=== PATIENT | female | born 1955 | race Caucasian/White ===

== ENCOUNTER → 2017-06-05 | Outpatient (CLI) | payer OTHER ==
[~2017-06-05] MED LIST: ALBUAER INH; BUPR-79 PO; CMD4 PO; FLNIN NAE; GLC5 PO; GLCSR500 PO; LEVO100T7 PO; LISI-729 PO; LORA-741 PO; MULT1LIQ; VITRON C PO; WARF2TAB PO
--- NOTE | 2017-06-05 13:40 | DIAGNOSTIC IMAGING REPORT ---
L UPPER EXT JOINT WITHOUT CLINICAL HISTORY: 62 years-old Female presenting with HEMATOMA, INCREASED PAIN/TENDERNESS. TECHNIQUE: Multisequence, multiplanar MR imaging of the left elbow was performed without the use of intravenous contrast. IV contrast: None. COMPARISON: Plain radiographs from 05/28/2017. FINDINGS: Localizer images: Unremarkable. Significant subcutaneous edema along the distal medial arm extending beyond the elbow joint to the dorsal medial forearm. At the level of the proximal ulnar metaphysis is a superficial heterogeneously T2 hypointense, heterogeneously T1 hyperintense lobular collection suggestive of hematoma. This measures 3.3 x 1.1 x 2.5 cm. Fluid noted within the olecranon bursa with overlying significant subcutaneous infiltration. Minimal increased signal intensity within the superficial aspect of the flexor compartment musculature (flexor carpi ulnaris and flexor digitorum profundus). Minimal increased signal intensity also noted in the anconeus muscle at the lateral proximal ulnar metaphysis. No significant elbow joint effusion. No bony edema. Articular cartilage grossly intact. Ulnar collateral ligament and common flexor tendon intact. Thickening of the common extensor tendon. Radial collateral ligament, lateral ulnar collateral ligament and annular ligament intact. Triceps tendon, brachialis tendon, and biceps tendons normal. IMPRESSION: 1. Superficial hematoma along the medial dorsal elbow measuring 3.3 x 1.1 x 2.5 cm. 2. Olecranon bursitis. 3. Extensive superficial subcutaneous edema along the distal medial arm and dorsal medial forearm, possibly contusion. The absence of trauma this raises concern for cellulitis. 4. Minimal intramuscular reactive changes primarily in the superficial portion of the flexor compartment musculature. 5. Findings suggestive of tendinosis of the common extensor tendon. Electronically signed by: Micha Grider M.D. 06/05/2017 1:39 PM Dictated Date/Time: 06/05/2017 1:30 PM
== END | disposition home or self-care (01) ==
LOC: C.MRI 11:40 → EDSTATUS 12:30
PROVIDERS: ATTEND Nurse Practitioner Family
DX: S50.02XA Contusion of left elbow, initial encounter (principal); X58.XXXA Exposure to other specified factors, initial encounter; M70.22 Olecranon bursitis, left elbow

== ENCOUNTER 2020-12-01 17:19 | Inpatient (IN) ==
[2020-12-01] MEDS ORDERED: ACETAMINOPHEN 500 MG TAB PO STA (18:08)
--- NOTE | 2020-12-01 18:35 | Emergency Department Note ---
History of Present Illness General Chief complaint: Fall Time Seen by Provider: 12/01/20 17:59 History of Present Illness Maximum Pain Intensity: 8 This is a 65-year-old female that presents to the emergency department via ambulance with complaints of "fall". The patient notes that she lives alone. She has had trouble with frequent falls over the past few weeks. She notes that she feels weak at times and is not able to stand. Last night around 10 PM she was sitting on the toilet and went to stand up but was too weak to do so and fell. She notes pain now in the right hip. She laid on the floor most of the night. The patient denies any speech trouble, syncope, loss of consciousness, striking the head, chest pain, shortness of breath, fevers or chills. The patient points to the right lateral hip as a location of pain that extends into the right anterior proximal thigh region extending to the knee. Home Medications Medication Instructions Recorded Confirmed Type Vitron-C 1 tab PO 3XWK 04/18/18 12/01/20 History bupropion HCl 200 mg PO BID 04/18/18 12/01/20 History levothyroxine 100 mcg PO QAM 04/18/18 12/01/20 History lisinopril 5 mg PO QPM 04/18/18 12/01/20 History metformin 500 mg PO BID 04/18/18 12/01/20 History calcium carbonate [Calcium 600] 600 mg PO DAILY 12/01/20 12/01/20 History cholecalciferol (vitamin D3) 75 mcg PO DAILY 12/01/20 12/01/20 History [Vitamin D3] dulaglutide [Trulicity] 0.75 mg SUBCUT WK 12/01/20 12/01/20 History warfarin 4 mg PO QPM 12/01/20 12/01/20 History zoledronic owjy-[id number]-demfs 0 ea IV YEARLY 12/01/20 12/01/20 History [Reclast] albuterol 2 mcg INHALATION QID PRN 12/02/20 12/02/20 History lorazepam 0.5 mg PO TID PRN 12/02/20 12/02/20 History trazodone 50 mg PO HS 12/02/20 12/02/20 History Allergies Allergy/AdvReac Type Severity Reaction Status Date / Time prochlorperazine Allergy Severe THROAT Verified 12/01/20 17:54 SWELLS Sulfa (Sulfonamide Allergy Intermediate ITCHY RASH Verified 12/01/20 17:54 Antibiotics) morphine AdvReac Intermediate HALLUCINATION, Verified 12/01/20 17:54 FEEL "REALLY WEIRD". Past Med/Surg History Medical History Anemia iron deficiency anemia - on oral iron Anxiety Blood clotting disorder Depression Diabetes mellitus, type [address] Hypothyroidism Pulmonary embolism 1998 - on warfarin - has a blood clotting disorder (unsure of name) Surgical History History of appendectomy History of carpal tunnel release rt History of cholecystectomy History of gastric bypass 10 years ago History of tooth extraction Social History Smoking Status: Never smoker Second Hand Exposure: No; Hx Alcohol Use: No Hx Substance Use: No Communication Ability: Effective Perforator Required: No Beliefs That Will Affect Care: None Current Living Situation: Alone Feels Safe at Home: Yes Assistive Devices: Glasses Review of Systems A total of 10 systems reviewed and were otherwise negative Physical Exam Vital Signs Vital Signs - 24 hr 12/01/20 17:40 12/01/20 21:38 12/01/20 21:42 Temperature 36.6 C Temperature Source Oral Pulse Rate 84 Pulse Rate [Right Finger] 82 80 Pulse Rate from SpO2 Sensor Pulse Rhythm [Right Finger] Regular Regular Pulse Strength [Right Finger] Normal Normal Respiratory Rate 16 18 18 Respiratory Effort / Characteristics Non-Labored Non-Labored Respiratory Depth Normal Normal Respiratory Pattern Regular Regular Blood Pressure 206/141 H Blood Pressure [Left Arm] 157/116 H 151/78 H Blood Pressure Mean 162 Blood Pressure Mean [Left Arm] 129 102 Blood Pressure Position [Left Arm] Lying Lying Pulse Oximetry 94 98 96 Oxygen Delivery Method Room Air Room Air Room Air Sepsis Recent Fever Within 48 Hours No Sepsis New/Unexplained Change in Mental Status N/A Sepsis Action Taken by Nursing No Action Required 12/01/20 22:00 12/01/20 23:01 12/01/20 23:14 Temperature Temperature Source Pulse Rate Pulse Rate [Right Finger] 74 Pulse Rate from SpO2 Sensor 77 74 Pulse Rhythm [Right Finger] Regular Pulse Strength [Right Finger] Normal Respiratory Rate 18 Respiratory Effort / Characteristics Non-Labored Respiratory Depth Normal Respiratory Pattern Regular Blood Pressure 149/88 H Blood Pressure [Left Arm] 150/94 H Blood Pressure Mean 108 Blood Pressure Mean [Left Arm] 112 Blood Pressure Position [Left Arm] Lying Pulse Oximetry 96 98 98 Oxygen Delivery Method Room Air Sepsis Recent Fever Within 48 Hours Sepsis New/Unexplained Change in Mental Status Sepsis Action Taken by Nursing 12/01/20 23:30 12/01/20 23:31 12/02/20 00:00 Temperature Temperature Source Pulse Rate Pulse Rate [Right Finger] Pulse Rate from SpO2 Sensor 79 76 77 Pulse Rhythm [Right Finger] Pulse Strength [Right Finger] Respiratory Rate Respiratory Effort / Characteristics Respiratory Depth Respiratory Pattern Blood Pressure 155/77 H Blood Pressure [Left Arm] Blood Pressure Mean 103 Blood Pressure Mean [Left Arm] Blood Pressure Position [Left Arm] Pulse Oximetry 94 96 95 Oxygen Delivery Method Sepsis Recent Fever Within 48 Hours Sepsis New/Unexplained Change in Mental Status Sepsis Action Taken by Nursing 12/02/20 00:01 12/02/20 00:02 Temperature Temperature Source Pulse Rate Pulse Rate [Right Finger] Pulse Rate from SpO2 Sensor 77 78 Pulse Rhythm [Right Finger] Pulse Strength [Right Finger] Respiratory Rate Respiratory Effort / Characteristics Respiratory Depth Respiratory Pattern Blood Pressure 194/86 H Blood Pressure [Left Arm] Blood Pressure Mean 122 Blood Pressure Mean [Left Arm] Blood Pressure Position [Left Arm] Pulse Oximetry 95 94 Oxygen Delivery Method Sepsis Recent Fever Within 48 Hours Sepsis New/Unexplained Change in Mental Status Sepsis Action Taken by Nursing VITAL SIGNS - Vital signs and nursing notes were reviewed. Stable and afebrile. GENERAL -65-year-old female appearing her stated age who is in no acute distress. Communicates well with provider and answers questions appropriately. SKIN - Without rashes. No meningeal or petechial rash. No deformity to the right hip. The hip right lower extremity is not shortened or rotated. HEAD - NC/AT. No daniel signs or raccoon's eyes. EYES - PERRL with EOMI bilaterally. Sclera anicteric. Palpebral conjunctiva pink and moist with no injection noted. EARS - No deformities of external structures noted on gross examination bi laterally. No blood from the ear canals. NECK - No nuchal rigidity. LUNGS - Chest wall symmetric without accessory muscle use, intercostals retractions, or central cyanosis. Normal vesicular breath sounds CTA B/L. No wheezes, rales, or rhonchi appreciated. CARDIAC - RRR with S1/S2. No murmur, rubs, or gallops appreciated. ABDOMEN - Abdominal contour normal without pulsations or visible masses. BS normoactive all four quadrants. No tenderness, palpable masses, hepatosplenomegaly, or ascites noted. No evidence of a surgical abdomen. The abdomen is soft and nonrigid. EXTREMITIES - No clubbing or peripheral cyanosis. Right lateral hip tenderness noted. Patient able to appreciate sensation to touch overlying the right lower extremity without deficit. Right dorsalis pedis pulse intact. +5/5 strength noted in UE/LE bilaterally. NEUROLOGIC - Cranial nerves II through XII grossly intact. PSYCH - A&Ox3 and cooperates fully with examiner. Pt is very pleasant and interacts well with examiner. Course Administered Medications Sodium Chloride (Nss) 500 mls @ 125 mls/hr IV .Q4H TWAN Stop: 12/31/20 21:14 Last Admin: 12/01/20 21:38 Dose: 125 mls/hr Documented by: [id number] Discontinued Medications Acetaminophen (Acetaminophen 500 Mg Tab) 500 mg PO NOW STA Stop: 12/01/20 18:09 Last Admin: 12/01/20 18:54 Dose: 500 mg Documented by: [id number] Fentanyl Citrate (Fentanyl Citrate 100 Mcg/2 Ml Vial) 50 mcg IV NOW STA Stop: 12/01/20 21:26 Last Admin: 12/01/20 21:39 Dose: 50 mcg Documented by: [id number] Ioversol (Optiray 300 100ml) 83 ml IV ONCE ONE Stop: 12/01/20 22:17 Last Admin: 12/01/20 22:17 Dose: 83 ml Documented by: [id number] Ondansetron HCl (Ondansetron Inj 2 Mg/Ml 2 Ml Vial) 4 mg IV NOW STA Stop: 12/01/20 21:26 Last Admin: 12/01/20 21:39 Dose: 4 mg Documented by: [id number] Medical Decision Making Laboratory Data Result diagrams: 12/01/20 18:08 12/01/20 19:00 Lab Results 12/01/20 12/01/20 12/01/20 Range/Units 18:08 19:00 19:50 WBC 9.86 (4.8-10.8) K/uL RBC 4.03 L (4.2-5.4) M/uL Hgb 12.4 (12.0-16.0) g/dL Hct 36.4 L (37-47) % MCV 90.3 (80-100) fL MCH 30.8 (25-34) pg MCHC 34.1 (32-36) g/dL RDW Std Deviation 42.7 (36.4-46.3) fL RDW Coeff of Betty 13.2 (11.5-14.5) % Plt Count 282 (130-400) K/uL MPV 9.3 (7.4-10.4) fL Immature Gran % (Auto) 0.4 % Neut % (Auto) 70.1 % Lymph % (Auto) 22.6 % Camp % (Auto) 6.2 % Eos % (Auto) 0.6 % Baso % (Auto) 0.1 % Neut # (Auto) 6.91 H (1.4-6.5) K/uL Lymph # (Auto) 2.23 (1.2-3.4) K/uL Camp # (Auto) 0.61 H (0.11-0.59) K/uL Eos # (Auto) 0.06 (0-0.5) K/uL Baso # (Auto) 0.01 (0-0.2) K/uL Immature Gran # (Auto) 0.04 H (0.00-0.02) K/uL PT 19.3 H (9.0-12.0) Seconds INR 2.0 H (0.9-1.1) APTT 38.8 H (21.0-31.0) Seconds PTT Ratio 1.5 Sodium 139 (136-145) mmol/L Potassium 3.3 L (3.5-5.1) mmol/L Chloride 105 (98-107) mmol/L Carbon Dioxide 26 (21-32) mmol/L Anion Gap 8.0 (3-11) BUN 15 (7-18) mg/dl Creatinine 0.97 (0.6-1.2) mg/dl Est Cr Clr Drug Dosing 61.0 ml/min Est GFR ( Amer) 72.0 ml/min Est GFR (Non-Af Amer) 62.2 ml/min BUN/Creatinine Ratio 15.8 (10-20) Glucose 141 H (70-99) mg/dl Calcium 9.7 (8.5-10.1) mg/dl Magnesium 1.7 L (1.8-2.4) mg/dl Total Bilirubin 0.6 (0.2-1) mg/dl AST 27 (15-37) U/L ALT 16 (12-78) U/L Alkaline Phosphatase 113 (45-117) U/L Total Creatine Kinase 533 H (26-192) U/L Troponin I < 0.015 (0-0.045) ng/ml Total Protein 7.9 (6.4-8.2) gm/dl Albumin 3.1 L (3.4-5.0) gm/dl Globulin 4.8 H (2.5-4.0) gm/dl Albumin/Globulin Ratio 0.6 L (0.9-2) COVID-19 Eval Order SARS-CoV-2 (PCR) (Negative) 12/01/20 12/01/20 Range/Units 21:50 21:50 WBC (4.8-10.8) K/uL RBC (4.2-5.4) M/uL Hgb (12.0-16.0) g/dL Hct (37-47) % MCV (80-100) fL MCH (25-34) pg MCHC (32-36) g/dL RDW Std Deviation (36.4-46.3) fL RDW Coeff of Betty (11.5-14.5) % Plt Count (130-400) K/uL MPV (7.4-10.4) fL Immature Gran % (Auto) % Neut % (Auto) % Lymph % (Auto) % Camp % (Auto) % Eos % (Auto) % Baso % (Auto) % Neut # (Auto) (1.4-6.5) K/uL Lymph # (Auto) (1.2-3.4) K/uL Camp # (Auto) (0.11-0.59) K/uL Eos # (Auto) (0-0.5) K/uL Baso # (Auto) (0-0.2) K/uL Immature Gran # (Auto) (0.00-0.02) K/uL PT (9.0-12.0) Seconds INR (0.9-1.1) APTT (21.0-31.0) Seconds PTT Ratio Sodium (136-145) mmol/L Potassium (3.5-5.1) mmol/L Chloride (98-107) mmol/L Carbon Dioxide (21-32) mmol/L Anion Gap (3-11) BUN (7-18) mg/dl Creatinine (0.6-1.2) mg/dl Est Cr Clr Drug Dosing ml/min Est GFR ( Amer) ml/min Est GFR (Non-Af Amer) ml/min BUN/Creatinine Ratio (10-20) Glucose (70-99) mg/dl Calcium (8.5-10.1) mg/dl Magnesium (1.8-2.4) mg/dl Total Bilirubin (0.2-1) mg/dl AST (15-37) U/L ALT (12-78) U/L Alkaline Phosphatase (45-117) U/L Total Creatine Kinase (26-192) U/L Troponin I (0-0.045) ng/ml Total Protein (6.4-8.2) gm/dl Albumin (3.4-5.0) gm/dl Globulin (2.5-4.0) gm/dl Albumin/Globulin Ratio (0.9-2) COVID-19 Eval Order Covid19 at [facility] SARS-CoV-2 (PCR) NEGATIVE (Negative) Imaging Data Radiologist's Impression: Femur X-Ray 12/01/20 18:08 XR femur RT 2V routine CLINICAL HISTORY: Right femur pain status post trauma COMPARISON: None. DISCUSSION: No acute fractures or dislocations are visualized. There are vascular calcifications present. IMPRESSION: No acute fractures or dislocations identified. ACT 112: Negative or not required by law. Electronically signed by: Pepe Bonilla M.D. 12/01/2020 7:02 PM Pelvis X-Ray 12/01/20 18:08 XR pelvis 1-2V routine CLINICAL HISTORY: Right pelvis and hip pain status post trauma COMPARISON: None. DISCUSSION: The bones are osteopenic. No fractures or dislocations are visualized. There is no SI joint diastases. There is no symphysis diastases. Vascular calcifications are visualized. There is an IVC filter present. IMPRESSION: No acute fractures or dislocations identified. ACT 112: Negative or not required by law. Electronically signed by: Pepe Bonilla M.D. 12/01/2020 7:[address] 12/01/20 19:12 CT pelvis wo con CT DOSE: 850.11 mGy.cm CLINICAL HISTORY: Right pelvis and hip pain status post trauma TECHNIQUE: Helical images were acquired in the transverse plane. Sagittal and coronal reformatted images were acquired. A dose lowering technique was utilized adhering to the principles of ALARA. COMPARISON STUDY: Conventional x-ray study performed the same day. FINDINGS: The bones are osteopenic. No acute fractures or dislocations are visualized. There are multiple fluid-filled bowel loops. There is partial visualization of a short segment small bowel intussusception. In the absence of abdominal pain, this may be transient and incidental. There are postsurgical changes present within the small bowel. There are mild degenerative changes present within the hips. IMPRESSION: 1. No acute fractures or dislocations identified 2. Multiple fluid-filled small bowel loops. Partial visualization of a suspected short segment small bowel intussusception ACT 112: Negative or not required by law. Electronically signed by: Pepe Bonilla M.D. 12/01/2020 8:[address] ABDOMEN & PELVIS With Contrast: No bowel obstruction. Postsurgical changes from a Екатерина-en-Y gastric bypass. The re is a small intussusception at the jejunojejunal anastomosis. Note that small bowel intussusceptions are usually transient in nature. No inflammatory changes, free fluid, or free air. Hiatal hernia. Cholecystectomy. Incompletely characterized low-attenuation lesion within the spleen potentially assist versus hemangioma. IVC filter in place. Radiologist: Ruddy Polo MD Study ready at 22:36 and initial results transmitted at 22:43 MDM Narrative Patient was seen and evaluated as above in room C 12. Review was performed of nursing notes and vital signs. I did review pertinent previous visits and patient history. After obtaining a thorough history and physical examination the above work up was performed. Patient presents to us today with frequent falls now with right hip pain. She lives alone. It was to a point where last night she was too weak to stand up off of the toilet and fell. She laid on the floor most of the night. On arrival here she is tender overlying the right lateral hip. Vital signs stable. Options of care were discussed with the patient. IV access established. Labs were drawn. Initially x-rays were obtained of the right femur and pelvis. These were negative for any fracture reassuringly. I was concerned about potential occult fracture in the pelvis given her location of pain therefore CT scan of the pelvis without contrast was ordered. This complicated the work-up as there was mention of multiple fluid-filled small bowel loops, partial visualization of a suspected short segment small bowel intussusception. Clinically the patient has a benign abdomen but does have a history of gastric bypass about 10 years ago that was performed in [facility]. The patient denies any complications with this. Decision was then made to discuss findings with GI and I spoke to Dr. Mcneal. This is felt to be more of a surgical case discussion and therefore we will proceed with CT scan of the abdomen pelvis and discuss findings with general surgery. CT scan was then obtained. This was read by stat rad and revealed no bowel obstruction. Small intussusception at the anastomosis. I discussed this with the on-call surgeon, Dr. Fisher. With the patient having a benign abdominal exam, no abdominal pain this is felt to be of no significance. Patient will be admitted for evaluation of frequent falls and will note that the intussusception is felt to be more of an incidental. Patient was reevaluated several times and did not have any abdominal pain. Patient does not have any evidence of a surgical abdomen. Patient was given p.o. acetaminophen initially for pain and then given IV fentanyl noting persistence of pain and wanting to provide IV analgesics but also working with her allergies. She was also given IV fluids as I will note she has a mild elevation of CK as this level was drawn noting that she did lay on the floor much of the night last night. There is no leukocytosis or anemia. INR 2.0. Mild hypokalemia 3.3. Total CK 533. Covid testing negative. I do believe that the patient would benefit from further evaluation and management inpatient setting and therefore the hospitalist was consulted. Please refer to further documentation regarding her stay. Case was discussed with the attending physician. GCS: 15 In the evaluation and treatment of this patient the following differential diagnoses were entertained: PA, PE, CVA, TIA, electrolyte disturbance, depression, muscle weakness, Lyme, among others. Attending Attestation: I Kyle Whiting MD independently saw and evaluated this patient and agree with history and physical is otherwise documented by the physician graphic design assistant. See their note for full details. Patient resting in bed no respiratory distress with some right-sided abdominal tenderness on exam. Difficulty ambulating due to pain and likely no evidence of fractures on imaging although question of some small intussusception. This was discussed with the surgery team who thought it was incidental and benign in nature. Given her difficulty ambulating and frequent falls and discussed with the patient she was agreed the plan for further observation here in the hospital and the hospitalist was contacted. Impression & Plan Frequent falls, Lives alone, Acute pain of right hip Discharge Plan Visit Data Chief Complaint: Fall ED Provider: Kyle Whiting ED Midlevel Provider: Singh Villa Discharge Problem: Frequent falls, Lives alone, Acute pain of right hip Patient Disposition: Admitted As Inpatient Condition: Good Discharge Instructions Interventions: ED Discharge Assessment Last Done: 12/02/20 01:41
--- NOTE | 2020-12-01 19:03 | XRay Report ---
XR femur RT 2V routine CLINICAL HISTORY: Right femur pain status post trauma COMPARISON: None. DISCUSSION: No acute fractures or dislocations are visualized. There are vascular calcifications pres ent. IMPRESSION: No acute fractures or dislocations identified. ACT 112: Negative or not required by law. Electronically signed by: Pepe Bonilla M.D. 12/01/2020 7:02 PM
--- NOTE | 2020-12-01 19:03 | XRay Report ---
XR pelvis 1-2V routine CLINICAL HISTORY: Right pelvis and hip pain status post trauma COMPARISON: None. DISCUSSION: The bones are osteopenic. No fractures or dislocations are visualized. There is no SI geovani nt diastases. There is no symphysis diastases. Vascular calcifications are visualized. There is an IV C filter present. IMPRESSION: No acute fractures or dislocations identified. ACT 112: Negative or not required by law. Electronically signed by: Pepe Bonilla M.D. 12/01/2020 7:01 PM
[2020-12-01 19:09] LABS: Basophils # (auto) 0.01 K/uL (0-0.2); Basophils % (auto) 0.1 %; Eosinophils # (auto) 0.06 K/uL (0-0.5); Eosinophils % (auto) 0.6 %; Hematocrit (blood only) 36.4 % (37-47); Hemoglobin 12.4 g/dL (12.0-16.0); Immature Granulocytes # (auto) 0.04 K/uL (0.00-0.02); Immature Granulocytes % (auto) 0.4 %; Lymphocytes # (auto) 2.23 K/uL (1.2-3.4); Lymphocytes % (auto) 22.6 %; Mean Corpuscular Hemoglobin 30.8 pg (25-34); Mean Corpuscular Hgb Conc 34.1 g/dL (32-36); Mean Corpuscular Volume 90.3 fL (80-100); Mean Platelet Volume 9.3 fL (7.4-10.4); Monocytes # (auto) 0.61 K/uL (0.11-0.59); Monocytes % (auto) 6.2 %; Neutrophils # (auto) 6.91 K/uL (1.4-6.5); Neutrophils % (auto) 70.1 %; Platelet Count 282 K/uL (130-400); RDW Coefficient of Variation 13.2 % (11.5-14.5); RDW Standard Deviation 42.7 fL (36.4-46.3); Red Blood Count 4.03 M/uL (4.2-5.4); White Blood Count 9.86 K/uL (4.8-10.8)
[2020-12-01 19:26] LABS: Alanine Aminotransferase 16 U/L (12-78); Albumin Level 3.1 gm/dl (3.4-5.0); Aspartate Aminotransferase 27 U/L (15-37); BUN Creatinine Ratio 15.8 (10-20); Blood Urea Nitrogen 15 mg/dl (7-18); Calcium 9.7 mg/dl (8.5-10.1); Carbon Dioxide 26 mmol/L (21-32); Chloride 105 mmol/L (98-107); Est GFR (Non-African American) 62.2 ml/min; Glucose 141 mg/dl (70-99); Magnesium 1.7 mg/dl (1.8-2.4); Potassium 3.3 mmol/L (3.5-5.1); Sodium 139 mmol/L (136-145)
[2020-12-01 19:31] LABS: Albumin Globulin Ratio 0.6 (0.9-2); Alkaline Phosphatase 113 U/L (45-117); Bilirubin,Total 0.6 mg/dl (0.2-1); Creatine Kinase 533 U/L (26-192); Globulin 4.8 gm/dl (2.5-4.0); Total Protein 7.9 gm/dl (6.4-8.2); Troponin I < 0.015 ng/ml (0-0.045)
[2020-12-01 20:26] LABS: Partial Thromboplastin Ratio 1.5; Partial Thromboplastin Time 38.8 Seconds (21.0-31.0); Prothrombin Time 19.3 Seconds (9.0-12.0)
--- NOTE | 2020-12-01 20:39 | CT Scan Report ---
CT pelvis wo con CT DOSE: 850.11 mGy.cm CLINICAL HISTORY: Right pelvis and hip pain status post trauma TECHNIQUE: Helical images were acquired in the transverse plane. Sagittal and coronal reformatted kirti ges were acquired. A dose lowering technique was utilized adhering to the principles of ALARA. COMPARISON STUDY: Conventional x-ray study performed the same day. FINDINGS: The bones are osteopenic. No acute fractures or dislocations are visualized. There are multiple fluid-filled bowel loops. There is partial visualization of a short segment small bowel intussusception. In the absence of abdominal pain, this may be transient and incidental. There are postsurgical changes present within the small bowel. There are mild degenerative changes present within the hips. IMPRESSION: 1. No acute fractures or dislocations identified 2. Multiple fluid-filled small bowel loops. Partial visualization of a suspected short segment small bowel intussusception ACT 112: Negative or not required by law. Electronically signed by: Pepe Bonilla M.D. 12/01/2020 8:38 PM
[2020-12-01] MEDS ORDERED: ONDANSETRON INJ 2 MG/ML 2 ML VIAL IV STA (21:25)
[2020-12-01] MEDS ORDERED: fentaNYL citrate 100 MCG/2 ML VIAL IV STA (21:25)
[2020-12-01] MEDS: SODIUM CHLORIDE 0.9% 500 ML IV SCH (21:38)
[2020-12-01] MEDS ORDERED: OPTIRAY 300 100mL IV ONE (22:16)
[2020-12-02] MEDS ORDERED: LORazepam 0.5 MG TAB PO PRN (01:53)
[2020-12-02] MEDS ORDERED: ALBUTEROL HFA 8 GM INHALER INH PRN (01:57)
[2020-12-02] MEDS: SODIUM CHLORIDE 0.9% 500 ML IV SCH (02:01)
[2020-12-02] MEDS ORDERED: MoRPHine SULFATE 4 MG/ML 1 ML CARP\\VIAL IV PRN (02:05)
--- NOTE | 2020-12-02 02:52 | History and Physical Report ---
DATE OF ADMISSION: 12/02/2020 CHIEF COMPLAINT: Frequent falls. HISTORY OF PRESENT ILLNESS: This is a 65-year-old female with past medical history significant for type 2 diabetes, hypothyroidism, hypertension, irritable bowel syndrome, Hitchcock's esophagus, intestinal postoperative non-absorption, senile osteoporosis with iron deficiency anemia, B12 deficiency, status post gastric bypass surgery, history of pulmonary embolism, on Coumadin, who presents with frequent falls. The patient states in August, she fell on the ice, she thought she slipped and fell in the ice, but since then she fell 4 times, a couple of days ago she had a big fall. Today, she was sitting on the toilet and she could not get up and she fell and laid on the floor for a couple of hours until her fiance came and helped her. That is the reason she came to the ER today. In the ER, imaging studies showed possible intussusception at the previous gastric bypass surgery and ER notified surgery, but because the patient is currently asymptomatic, no further recommendations were made at this time. The patient denies any headache, no blurred vision, no earache, no runny nose, no sore throat, no cough, no fever, no chills, no chest pain, no shortness of breath, no nausea, no vomiting, no abdominal pain. Normal bowel and bladder movements. Currently resting comfortably and hemodynamically stable. She says her legs are just feeling weak and she is falling down. Denies any other complaints. ALLERGIES: PROCHLORPERAZINE, SULFA ANTIBIOTICS, MORPHINE. PAST MEDICAL HISTORY: As mentioned above. PAST SURGICAL HISTORY: Carpal tunnel surgery, colonoscopy, colposcopy, EGD with biopsy, gastric bypass surgery, status post [place] filter, history of giant incarcerated incisional hernia, laryngoscopy, removal of the ruptured appendix, cholecystectomy. MEDICATIONS: The patient is on Ativan 0.5 mg p.o. t.i.d. p.r.n., Trulicity 0.75 mg sublingual once a week, lisinopril 5 mg p.o. daily, metformin 500 mg p.o. b.i.d., montelukast 10 mg p.o. daily, levothyroxine 100 mcg p.o. daily, warfarin 4 mg as directed, trazodone 50 mg p.o. daily, bupropion 100 mg p.o. b.i.d., albuterol 2 puffs q. 4 hours p.r.n., Flonase 2 sprays into each nostril daily, Vitron-C 1 tablet p.o. b.i.d., calcium plus vitamin D 1 tablet p.o. daily, vitamin B12 shots q.12 weeks. FAMILY HISTORY: Significant for mother has heart problems, hypertension, diabetes, and arthritis; father has heart problems; uncle has diabetes; aunt has diabetes. SOCIAL HISTORY: Lives with her fiance. No smoking, no alcohol, no drug use. REVIEW OF SYSTEMS: As per HPI. Rest of review of systems negative. PHYSICAL EXAMINATION: GENERAL: The patient is obese, not in acute distress. VITAL SIGNS: Temperature 36.6, pulse 74, respiratory rate 18, blood pressure 194/86, oxygen 95% on room air. HEENT: Pupils equal, round, and reactive to light. Oral mucosa dry. NECK: No JVD. No neck masses. CARDIOVASCULAR: S1, S2 heard, regular rate and rhythm, no murmur, no gallop. RESPIRATORY SYSTEM: Normal AP diameter. No accessory muscle use. No wheezing, no crackles. ABDOMEN: Soft, bowel sounds present, nontender. No distention. CENTRAL NERVOUS SYSTEM: Cranial nerves II-XII are grossly intact. Not able to lift lower extremity because of pain and whenever she lifts she has pain in the hip region. Sensation is intact. EXTREMITIES: No edema, no erythema seen. LABORATORY DATA: WBC 9.8, hemoglobin 12.4, hematocrit 36.4, platelets 282. PT 19.3, INR 2, APTT 38.8. Sodium 139, potassium 3.3, chloride 105, bicarbonate 26, BUN 15, creatinine 0.9, serum glucose 141, calcium 9.7, magnesium 1.7, total bilirubin 0.6, AST 27, ALT 16, alkaline phosphatase 113, total creatinine kinase 533. Troponin I less than 0.015. SARS-CoV-2 PCR negative. IMAGING DATA: Femur x-ray, no acute fractures or dislocations identified. Pelvic x-ray, no acute fracture or dislocations identified. Pelvic CT, no acute fracture or dislocations identified. Multiple fluid-filled small bowel loops, partial visualization of the suspected short segment, small bowel intussusception. CT of the abdomen and pelvis with contrast, no bowel obstruction. Postsurgical changes from the Екатерина-en-Y gastric bypass. There is a small intussusception of the jejunojejunal anastomosis. No other small bowel intussusceptions. Intussusceptions are usually transit in nature. No inflammatory change, free fluid or free air. Hiatal hernia, cholecystectomy, incompletely characterized low attenuation lesion within the spleen, potentially a cyst versus hemangioma. IVC filter in place. ASSESSMENT AND PLAN: This is a 65-year-old female who presents with frequent falls. 1. Frequent falls: weakness in lower extremity. The patient hx of gastric bypass surgery. She says she takes vitamin B12 shots as scheduled. Her sensation is intact in the lower extremities, but cannot lift the lower extremity because of the pain in the hips region. No fracture on the imaging studies. We will observe in the hospital. We will do PT and OT. Will do vitamin B12 and folate levels and consult neurology for any further recommendations. 2. Question of intussusception on imaging studies. Surgery was notified by the ER, but we will keep her n.p.o. until seen by surgery in a.m. 3. History of pulmonary embolism, on Coumadin. INR 2, continue Coumadin. Follow PT/INR. 4. Hypokalemia: We will replace. 5. Hypomagnesemia: We will replace. 6. Diabetes: Hold her home medication. Placed on sliding scale. Follow the blood sugars. 7. History of iron deficiency anemia, on iron supplements. 8. History of anxiety and depression: Continue home bupropion and Ativan p.r.n. 9. Hypothyroidism: continue Synthroid. 10. Hypertension: Continue lisinopril. We will monitor. 11. Deep venous thrombosis prophylaxis, sequential compression devices. 12. Disposition: Observation in medical floor. PT and OT prior to discharge. Social service to help with discharge planning. [place]
[2020-12-02] MEDS: LEVOTHYROXINE SODIUM 100 MCG TABLET PO SCH (05:57)
[2020-12-02 06:29] LABS: Basophils # (auto) 0.02 K/uL (0-0.2); Basophils % (auto) 0.2 %; Eosinophils # (auto) 0.18 K/uL (0-0.5); Hematocrit (blood only) 33.8 % (37-47); Hemoglobin 11.3 g/dL (12.0-16.0); Immature Granulocytes # (auto) 0.04 K/uL (0.00-0.02); Immature Granulocytes % (auto) 0.5 %; Lymphocytes # (auto) 3.15 K/uL (1.2-3.4); Lymphocytes % (auto) 35.5 %; Mean Corpuscular Hgb Conc 33.4 g/dL (32-36); Mean Corpuscular Volume 92.9 fL (80-100); Mean Platelet Volume 9.1 fL (7.4-10.4); Monocytes # (auto) 0.47 K/uL (0.11-0.59); Monocytes % (auto) 5.3 %; Neutrophils # (auto) 5.01 K/uL (1.4-6.5); Neutrophils % (auto) 56.5 %; Platelet Count 281 K/uL (130-400); RDW Coefficient of Variation 13.4 % (11.5-14.5); RDW Standard Deviation 44.6 fL (36.4-46.3); Red Blood Count 3.64 M/uL (4.2-5.4); White Blood Count 8.87 K/uL (4.8-10.8)
[2020-12-02 07:03] LABS: BUN Creatinine Ratio 16.8 (10-20); Calcium 9.2 mg/dl (8.5-10.1); Est GFR (African American) 72.9 ml/min; Est GFR (Non-African American) 62.9 ml/min; Magnesium 1.7 mg/dl (1.8-2.4); Potassium 3.9 mmol/L (3.5-5.1)
--- NOTE | 2020-12-02 07:45 | CT Scan Report ---
CT SCAN OF THE ABDOMEN AND PELVIS WITH IV CONTRAST CLINICAL HISTORY: Fall. Pelvic pain. Abnormal pelvic CT. History of gastric bypass. COMPARISON STUDY: Pelvic CT dated 12/01/2020. Abdominal CT dated 05/15/2011. TECHNIQUE: Following the IV administration of 83 cc of Optiray 300, CT scan of the abdomen and pelvi s is performed from the lung bases to the proximal femora. Images are reviewed in the axial, sagittal , and coronal planes. IV contrast was administered without complication. A dose lowering technique wa s utilized adhering to the principles of ALARA. CT DOSE: 1047.61 mGy.cm FINDINGS: Lung bases: The heart is normal in size and without pericardial effusion. There are coronary artery c alcifications. The lung bases are clear noting bibasilar atelectasis. Liver: The contrast-enhanced liver is normal in size, contour, and attenuation. There is no intrahepa tic biliary ductal dilatation. The hepatic veins and portal veins are patent. Gallbladder: Surgically absent noting clips in the gallbladder fossa. Spleen: Normal in size and attenuation. A 2.1 cm splenic hypodensity on image #81 has been present da ting back to 2010 and is of doubtful significance. Pancreas: Atrophic and grossly unremarkable. Adrenal glands: Unremarkable. Kidneys: The contrast enhanced kidneys demonstrate mild cortical atrophy and are without hydronephros is. The kidneys enhance symmetrically. There are renovascular calcifications. Abdominal vasculature: The abdominal aorta is normal in course and caliber noting mild atheroscleroti c calcification. An infrarenal IVC filter is in place. Stomach and bowel: There is a moderate hiatal hernia. Postop changes consistent with a history of Rou x-en-Y gastric bypass surgery. No bowel obstruction is identified. Findings of an apparent small wilberto l intussusception in the left lower quadrant are seen on image #260. There is located at the site of anastomosis and there is chronic dilatation of the small bowel this level. This may be related to pos toperative denervation. These findings are unchanged in appearance from the 05/15/2011 examination. T he appendix is nonvisualized. Peritoneum: There is no intraperitoneal free air or abdominal ascites. Lymphadenopathy: None. Pelvic viscera: The bladder, uterus, and adnexa are normal as visualized. Skeletal structures: The skeletal structures are osteopenic. There is mild to moderate lumbosacral sp ondylosis. No lytic or blastic lesions are seen. IMPRESSION: 1. There is postoperative change consistent with a history of Екатерина-en-Y gastric bypass surgery. No rex wel obstruction is identified. 2. There is an apparent intussusception of small bowel in the left lower quadrant at an anastomotic s ite. There is no associated obstruction or surrounding inflammation. This is of indeterminate but miriam btful significance, as this is identical to the 05/15/2011 examination. Clinical correlation will be essential. 3. Additional findings as above. ACT 112: Negative or not required by law. Electronically signed by: Dirk Wells M.D. 12/02/2020 7:44 AM
[2020-12-02 07:59] LABS: Folate (Folic Acid) 15.7 ng/ml (>5.38)
[2020-12-02] MEDS ORDERED: GLUCOSE 10 TABS/TUBE PO PRN (08:00)
[2020-12-02] MEDS ORDERED: DEXTROSE 50% 50 ML SYRINGE IV PRN (08:00)
[2020-12-02] MEDS ORDERED: GLUCOSE 40% GEL 15 GM TUBE PO PRN (08:00)
[2020-12-02] MEDS ORDERED: CARBOHYDRATES FOR HYPOGLYCEMIA PO PRN (08:00)
[2020-12-02] MEDS ORDERED: GLUCAGON FOR INJ 1 MG VIAL IM PRN (08:00)
[2020-12-02] MEDS: buPROPion SR 100 MG TABCR PO SCH ×2 (08:39→21:10)
[2020-12-02] MEDS: FERROUS SULFATE 325 MG TAB PO SCH (08:40)
[2020-12-02] MEDS: CHOLECALCIFEROL 1,000 UNITS 25 MCG TAB PO SCH (08:40)
[2020-12-02] MEDS: CALCIUM CARBONATE 1250MG TAB PO SCH (08:40)
[2020-12-02] MEDS: ASCORBIC ACID 500 MG TAB PO SCH (08:40)
[2020-12-02] MEDS ORDERED: MAGNESIUM SULFATE / D5W 1 GM/100 ML BAG IV ONE (09:00)
[2020-12-02] MEDS: INSULIN ASPART 100 UNITS/ML 3 ML PEN SC SCH ×4 (09:09→21:00)
--- NOTE | 2020-12-02 09:57 | Surgery Consultation ---
Date of Consultation December 02, 2020 Assessment & Plan (1) Small bowel intussusception: 65 year-old female with history of gastric bypass in 2000 who presented to ED with complaint of weakness and recurrent falls. CT scan showing incidental small bowel intussusception. Findings similar to CT scan back in 2010. No abdominal pain, nausea, vomiting, bowel changes, blood in stools. Abdomen benign. Plan: No surgical intervention required at this time. Findings of intussusception likely incidental and chronic as similar findings dating back to CT scan in 2010 and patient is asymptomatic and abdomen benign. Thank you for consultation, our services signing off. Dr. Fisher has seen and examined pt, agrees with above. History of Present Illness Reason for Consultation: small bowel intussusception Requesting Physician: Dr. Santoyo Attending Physician: Luis Alberto Rosales MD History of Present Illness Jessica is a 65 year-old female with history of gastric bypass in 2000 who presented to the emergency department last night due to weakness and recurrent falls. She had a CT scan of abdomen and pelvis which showed small bowel intussusception at stie of small bowel anastomosis. Patient did not present with any complaint of abdominal pain, nausea, vomiting, or change in bowel habits. This finding was similar to CT scan in 2011. Jessica states she is not having any abdominal pain, nausea, vomiting, change in bowel habits, constipation, blood or black/tarry stools. Allergies Allergy/AdvReac Type Severity Reaction Status Date / Time prochlorperazine Allergy Severe THROAT Verified 12/01/20 17:54 SWELLS Sulfa (Sulfonamide Allergy Intermediate ITCHY RASH Verified 12/01/20 17:54 Antibiotics) morphine AdvReac Intermediate HALLUCINATION, Verified 12/01/20 17:54 FEEL "REALLY WEIRD". Home Medications Medication Instructions Recorded Confirmed Type Vitron-C 1 tab PO 3XWK 04/18/18 12/01/20 History bupropion HCl 200 mg PO BID 04/18/18 12/01/20 History levothyroxine 100 mcg PO QAM 04/18/18 12/01/20 History lisinopril 5 mg PO QPM 04/18/18 12/01/20 History metformin 500 mg PO BID 04/18/18 12/01/20 History calcium carbonate [Calcium 600] 600 mg PO DAILY 12/01/20 12/01/20 History cholecalciferol (vitamin D3) 75 mcg PO DAILY 12/01/20 12/01/20 History [Vitamin D3] dulaglutide [Trulicity] 0.75 mg SUBCUT WK 12/01/20 12/01/20 History warfarin 4 mg PO QPM 12/01/20 12/01/20 History zoledronic ikhj-xvrizaxc-ubyik 0 ea IV YEARLY 12/01/20 12/01/20 History [Reclast] albuterol 2 mcg INHALATION QID PRN 12/02/20 12/02/20 History lorazepam 0.5 mg PO TID PRN 12/02/20 12/02/20 History trazodone 50 mg PO HS 12/02/20 12/02/20 History Patient History Medical History Anemia iron deficiency anemia - on oral iron Anxiety Blood clotting disorder Depression Diabetes mellitus, type [address] [place] [address] Hypothyroidism Pulmonary embolism 1998 - on warfarin - has a blood clotting disorder (unsure of name) Surgical History History of appendectomy History of carpal tunnel release rt History of cholecystectomy History of gastric bypass 10 years ago History of tooth extraction Social History Smoking Status: Never smoker Second Hand Exposure: No; Hx Alcohol Use: No Hx Substance Use: No Preferred Language: Dutch Communication Ability: Effective Area Director Required: No Beliefs That Will Affect Care: Orthodoxy Orthodoxy Beliefs: Christianity Current Living Situation: Alone Other Information That Helps Us Care for You: No Feels Safe at Home: Yes Safety Concerns: Feels Safe At This Time Assistive Devices: Cane Review of Systems Review of Systems: All systems reviewed & are unremarkable except as noted in HPI & below Physical Exam Constitutional: WD/WN, vitals as above Respiratory: normal respiratory effort, lungs clear to auscultation Gastrointestinal (Abdomen): Inspection/Auscultation: abdomen normal to inspection; abdomen not distended Percussion/Palpation: abdomen soft; abdomen nontender, no guarding and abdomen not rigid Skin: no rashes, warm and dry Psychiatric: Orientation: alert and oriented x 3 Results & Data (MN) Vital Signs (Past 12 Hours) Vital Signs Temp Pulse Resp BP BP Pulse Ox 12/02/20 05:48 36.9 C 73 16 129/72 96 12/02/20 04:09 137/76 12/02/20 01:30 36.8 C 77 15 188/92 H 99 12/02/20 00:30 16 165/80 H 95 12/02/20 00:02 94 12/02/20 00:01 194/86 H 95 12/02/20 00:00 95 12/01/20 23:31 96 12/01/20 23:30 155/77 H 94 12/01/20 23:14 98 12/01/20 23:01 149/88 H 98 12/01/20 22:00 74 18 150/94 H 96 Laboratory Results 12/02/20 12/02/20 12/02/20 Range/Units 09:32 08:08 06:15 WBC (4.8-10.8) K/uL RBC (4.2-5.4) M/uL Hgb (12.0-16.0) g/dL Hct (37-47) % MCV (80-100) fL MCH (25-34) pg MCHC (32-36) g/dL RDW Std Deviation (36.4-46.3) fL RDW Coeff of Betty (11.5-14.5) % Plt Count (130-400) K/uL MPV (7.4-10.4) fL Immature Gran % (Auto) % Neut % (Auto) % Lymph % (Auto) % Barren % (Auto) % Eos % (Auto) % Baso % (Auto) % Neut # (Auto) (1.4-6.5) K/uL Lymph # (Auto) (1.2-3.4) K/uL Barren # (Auto) (0.11-0.59) K/uL Eos # (Auto) (0-0.5) K/uL Baso # (Auto) (0-0.2) K/uL Immature Gran # (Auto) (0.00-0.02) K/uL PT (9.0-12.0) Seconds INR (0.9-1.1) APTT (21.0-31.0) Seconds PTT Ratio Sodium (136-145) mmol/L Potassium (3.5-5.1) mmol/L Chloride (98-107) mmol/L Carbon Dioxide (21-32) mmol/L Anion Gap (3-11) BUN (7-18) mg/dl Creatinine (0.6-1.2) mg/dl Est Cr Clr Drug Dosing ml/min Est GFR ( Amer) ml/min Est GFR (Non-Af Amer) ml/min BUN/Creatinine Ratio (10-20) Glucose (70-99) mg/dl POC Glucose 190 H (70-99) mg/dl Calcium (8.5-10.1) mg/dl Magnesium (1.8-2.4) mg/dl Total Bilirubin (0.2-1) mg/dl AST (15-37) U/L ALT (12-78) U/L Alkaline Phosphatase (45-117) U/L Total Creatine Kinase 321 H (26-192) U/L Troponin I (0-0.045) ng/ml Total Protein (6.4-8.2) gm/dl Albumin (3.4-5.0) gm/dl Globulin (2.5-4.0) gm/dl Albumin/Globulin Ratio (0.9-2) Vitamin B12 (193-986) pg/ml Folate (>5.38) ng/ml Serum Copper Pending COVID-19 Eval Order SARS-CoV-2 (PCR) (Negative) 12/02/20 12/02/20 12/02/20 Range/Units 06:15 06:15 06:15 WBC 8.87 (4.8-10.8) K/uL RBC 3.64 L (4.2-5.4) M/uL Hgb 11.3 L (12.0-16.0) g/dL Hct 33.8 L (37-47) % MCV 92.9 (80-100) fL MCH 31.0 (25-34) pg MCHC 33.4 (32-36) g/dL RDW Std Deviation 44.6 (36.4-46.3) fL RDW Coeff of Betty 13.4 (11.5-14.5) % Plt Count 281 (130-400) K/uL MPV 9.1 (7.4-10.4) fL Immature Gran % (Auto) 0.5 % Neut % (Auto) 56.5 % Lymph % (Auto) 35.5 % Barren % (Auto) 5.3 % Eos % (Auto) 2.0 % Baso % (Auto) 0.2 % Neut # (Auto) 5.01 (1.4-6.5) K/uL Lymph # (Auto) 3.15 (1.2-3.4) K/uL Barren # (Auto) 0.47 (0.11-0.59) K/uL Eos # (Auto) 0.18 (0-0.5) K/uL Baso # (Auto) 0.02 (0-0.2) K/uL Immature Gran # (Auto) 0.04 H (0.00-0.02) K/uL PT (9.0-12.0) Seconds INR (0.9-1.1) APTT (21.0-31.0) Seconds PTT Ratio Sodium 142 (136-145) mmol/L Potassium 3.9 D (3.5-5.1) mmol/L Chloride 108 H (98-107) mmol/L Carbon Dioxide 27 (21-32) mmol/L Anion Gap 7.0 (3-11) BUN 16 (7-18) mg/dl Creatinine 0.96 (0.6-1.2) mg/dl Est Cr Clr Drug Dosing 62.0 ml/min Est GFR ( Amer) 72.9 ml/min Est GFR (Non-Af Amer) 62.9 ml/min BUN/Creatinine Ratio 16.8 (10-20) Glucose 124 H (70-99) mg/dl POC Glucose (70-99) mg/dl Calcium 9.2 (8.5-10.1) mg/dl Magnesium 1.7 L (1.8-2.4) mg/dl Total Bilirubin (0.2-1) mg/dl AST (15-37) U/L ALT (12-78) U/L Alkaline Phosphatase (45-117) U/L Total Creatine Kinase (26-192) U/L Troponin I (0-0.045) ng/ml Total Protein (6.4-8.2) gm/dl Albumin (3.4-5.0) gm/dl Globulin (2.5-4.0) gm/dl Albumin/Globulin Ratio (0.9-2) Vitamin B12 228 (193-986) pg/ml Folate 15.70 (>5.38) ng/ml Serum Copper COVID-19 Eval Order SARS-CoV-2 (PCR) (Negative) 12/02/20 12/01/20 12/01/20 Range/Units 01:33 21:50 21:50 WBC (4.8-10.8) K/uL RBC (4.2-5.4) M/uL Hgb (12.0-16.0) g/dL Hct (37-47) % MCV (80-100) fL MCH (25-34) pg MCHC (32-36) g/dL RDW Std Deviation (36.4-46.3) fL RDW Coeff of Betty (11.5-14.5) % Plt Count (130-400) K/uL MPV (7.4-10.4) fL Immature Gran % (Auto) % Neut % (Auto) % Lymph % (Auto) % Barren % (Auto) % Eos % (Auto) % Baso % (Auto) % Neut # (Auto) (1.4-6.5) K/uL Lymph # (Auto) (1.2-3.4) K/uL Barren # (Auto) (0.11-0.59) K/uL Eos # (Auto) (0-0.5) K/uL Baso # (Auto) (0-0.2) K/uL Immature Gran # (Auto) (0.00-0.02) K/uL PT (9.0-12.0) Seconds INR (0.9-1.1) APTT (21.0-31.0) Seconds PTT Ratio Sodium (136-145) mmol/L Potassium (3.5-5.1) mmol/L Chloride (98-107) mmol/L Carbon Dioxide (21-32) mmol/L Anion Gap (3-11) BUN (7-18) mg/dl Creatinine (0.6-1.2) mg/dl Est Cr Clr Drug Dosing ml/min Est GFR ( Amer) ml/min Est GFR (Non-Af Amer) ml/min BUN/Creatinine Ratio (10-20) Glucose (70-99) mg/dl POC Glucose 125 H (70-99) mg/dl Calcium (8.5-10.1) mg/dl Magnesium (1.8-2.4) mg/dl Total Bilirubin (0.2-1) mg/dl AST (15-37) U/L ALT (12-78) U/L Alkaline Phosphatase (45-117) U/L Total Creatine Kinase (26-192) U/L Troponin I (0-0.045) ng/ml Total Protein (6.4-8.2) gm/dl Albumin (3.4-5.0) gm/dl Globulin (2.5-4.0) gm/dl Albumin/Globulin Ratio (0.9-2) Vitamin B12 (193-986) pg/ml Folate (>5.38) ng/ml Serum Copper COVID-19 Eval Order Covid19 at [facility] SARS-CoV-2 (PCR) NEGATIVE (Negative) 12/01/20 12/01/20 12/01/20 Range/Units 19:50 19:00 18:08 WBC 9.86 (4.8-10.8) K/uL RBC 4.03 L (4.2-5.4) M/uL Hgb 12.4 (12.0-16.0) g/dL Hct 36.4 L (37-47) % MCV 90.3 (80-100) fL MCH 30.8 (25-34) pg MCHC 34.1 (32-36) g/dL RDW Std Deviation 42.7 (36.4-46.3) fL RDW Coeff of Betty 13.2 (11.5-14.5) % Plt Count 282 (130-400) K/uL MPV 9.3 (7.4-10.4) fL Immature Gran % (Auto) 0.4 % Neut % (Auto) 70.1 % Lymph % (Auto) 22.6 % Barren % (Auto) 6.2 % Eos % (Auto) 0.6 % Baso % (Auto) 0.1 % Neut # (Auto) 6.91 H (1.4-6.5) K/uL Lymph # (Auto) 2.23 (1.2-3.4) K/uL Barren # (Auto) 0.61 H (0.11-0.59) K/uL Eos # (Auto) 0.06 (0-0.5) K/uL Baso # (Auto) 0.01 (0-0.2) K/uL Immature Gran # (Auto) 0.04 H (0.00-0.02) K/uL PT 19.3 H (9.0-12.0) Seconds INR 2.0 H (0.9-1.1) APTT 38.8 H (21.0-31.0) Seconds PTT Ratio 1.5 Sodium 139 (136-145) mmol/L Potassium 3.3 L (3.5-5.1) mmol/L Chloride 105 (98-107) mmol/L Carbon Dioxide 26 (21-32) mmol/L Anion Gap 8.0 (3-11) BUN 15 (7-18) mg/dl Creatinine 0.97 (0.6-1.2) mg/dl Est Cr Clr Drug Dosing 61.0 ml/min Est GFR ( Amer) 72.0 ml/min Est GFR (Non-Af Amer) 62.2 ml/min BUN/Creatinine Ratio 15.8 (10-20) Glucose 141 H (70-99) mg/dl POC Glucose (70-99) mg/dl Calcium 9.7 (8.5-10.1) mg/dl Magnesium 1.7 L (1.8-2.4) mg/dl Total Bilirubin 0.6 (0.2-1) mg/dl AST 27 (15-37) U/L ALT 16 (12-78) U/L Alkaline Phosphatase 113 (45-117) U/L Total Creatine Kinase 533 H (26-192) U/L Troponin I < 0.015 (0-0.045) ng/ml Total Protein 7.9 (6.4-8.2) gm/dl Albumin 3.1 L (3.4-5.0) gm/dl Globulin 4.8 H (2.5-4.0) gm/dl Albumin/Globulin Ratio 0.6 L (0.9-2) Vitamin B12 (193-986) pg/ml Folate (>5.38) ng/ml Serum Copper COVID-19 Eval Order SARS-CoV-2 (PCR) (Negative) Diagnostic Findings CT SCAN OF THE ABDOMEN AND PELVIS WITH IV CONTRAST CLINICAL HISTORY: Fall. Pelvic pain. Abnormal pelvic CT. History of gastric bypass. COMPARISON STUDY: Pelvic CT dated 12/01/2020. Abdominal CT dated 05/15/2011. TECHNIQUE: Following the IV administration of 83 cc of Optiray 300, CT scan of the abdomen and pelvis is performed from the lung bases to the proximal femora. Images are reviewed in the axial, sagittal, and coronal planes. IV contrast was administered without complication. A dose lowering technique was utilized adhering to the principles of ALARA. CT DOSE: 1047.61 mGy.cm FINDINGS: Lung bases: The heart is normal in size and without pericardial effusion. There are coronary artery calcifications. The lung bases are clear noting bibasilar atelectasis. Liver: The contrast-enhanced liver is normal in size, contour, and attenuation. There is no intrahepatic biliary ductal dilatation. The hepatic veins and portal veins are patent. Gallbladder: Surgically absent noting clips in the gallbladder fossa. Spleen: Normal in size and attenuation. A 2.1 cm splenic hypodensity on image #81 has been present dating back to 2010 and is of doubtful significance. Pancreas: Atrophic and grossly unremarkable. Adrenal glands: Unremarkable. Kidneys: The contrast enhanced kidneys demonstrate mild cortical atrophy and are without hydronephrosis. The kidneys enhance symmetrically. There are renovascular calcifications. Abdominal vasculature: The abdominal aorta is normal in course and caliber noting mild atherosclerotic calcification. An infrarenal IVC filter is in place. Stomach and bowel: There is a moderate hiatal hernia. Postop changes consistent with a history of Екатерина-en-Y gastric bypass surgery. No bowel obstruction is identified. Findings of an apparent small bowel intussusception in the left lower quadrant are seen on image #260. There is located at the site of anastomosis and there is chronic dilatation of the small bowel this level. This may be related to postoperative denervation. These findings are unchanged in appearance from the 05/15/2011 examination. The appendix is nonvisualized. Peritoneum: There is no intraperitoneal free air or abdominal ascites. Lymphadenopathy: None. Pelvic viscera: The bladder, uterus, and adnexa are normal as visualized. Skeletal structures: The skeletal structures are osteopenic. There is mild to moderate lumbosacral spondylosis. No lytic or blastic lesions are seen. IMPRESSION: 1. There is postoperative change consistent with a history of Екатерина-en-Y gastric bypass surgery. No bowel obstruction is identified. 2. There is an apparent intussusception of small bowel in the left lower quadrant at an anastomotic site. There is no associated obstruction or surrounding inflammation. This is of indeterminate but doubtful significance, as this is identical to the 05/15/2011 examination. Clinical correlation will be essential. 3. Additional findings as above.
[2020-12-02 10:15] LABS: Appearance Urine Clear (Clear); Bacteria Urine Automated Negative (Negative); Bilirubin Urine Negative (Negative); Blood Urine Negative (Negative); Color Urine Dark Yellow; Glucose Urine UA Negative (Negative); Ketones Urine 1+ (Negative); Leukocyte Esterase Urine Negative (Negative); Nitrite Urine Negative (Negative); Protein Urine Trace (Negative); RBC Urine Automated 0-4 /hpf (0-4); Specific Gravity Urine > 1.045 (1.000-1.030); Urobilinogen Urine Negative (Negative)
[2020-12-02] MEDS: SODIUM CHLORIDE 0.9% 1000ML 1,000 ML IV SCH ×2 (10:22→20:18)
--- NOTE | 2020-12-02 13:23 | Magnetic Resonance Report ---
MR thoracic spine wo con CLINICAL HISTORY: Myelopathy SEVERE SPINAL PAIN. BILATERAL LEG WEAKNESS. PRIOR STUDIES: None TECHNIQUE: MR scanning of the thoracic spine was performed using multiple pulse sequences. No gadoli nium was administered. FINDINGS: There are no areas of marrow replacement suspicious for neoplasm. There are no areas of marrow edema to indicate an acute fracture. There is a tiny central disc protrusion at the T5-6 level of doubtful clinical significance. There is no evidence of thoracic spinal or foraminal stenosis. No thoracic cord lesions are visualized. Sagittal images suggest a disc bulge/protrusion at the L2-3 level with secondary spinal canal narrowi ng. This is not well evaluated on this study of the thoracic spine. IMPRESSION: 1. No evidence of pathologic marrow replacement. 2. Tiny central disc protrusion at the T5-6 level, finding of doubtful clinical significance 3. No thoracic cord lesions identified 4. Disc bulge/protrusion at the L2-3 level with secondary spinal canal narrowing ACT 112: Negative or not required by law. Electronically signed by: Pepe Bonilla M.D. 12/02/2020 1:21 PM
[2020-12-02] MEDS ORDERED: GADOBUTROL 65ML VIAL IV ONE (13:36)
--- NOTE | 2020-12-02 13:46 | Magnetic Resonance Report ---
MR cervical spine wo/w con CLINICAL HISTORY: Myelopathy TECHNIQUE: Sagittal and axial T1, T2 and STIR images were obtained. Images were acquired before and a fter the administration of 8.5 cc of intravenous Gadavist COMPARISON STUDY: No previous studies for comparison. There are no suspicious areas of marrow replacement. No intrinsic cervical cord lesions are visualize d. C2-3: There is a minimal circumferential disc bulge. There is no significant spinal or foraminal sten osis C3-4: There is a small broad-based central disc protrusion. There is mild spinal stenosis. There is m ild bilateral foraminal narrowing C4-5: There is a circumferential disc bulge. There is mild spinal stenosis. There is mild bilateral f oraminal narrowing C5-6 :There is a small left paracentral disc protrusion with effacement of the anterior subarachnoid space. There is minimal secondary cord deformity. There is mild bilateral foraminal narrowing. C6-7: There is no evidence of disc bulge or focal herniation. There is no evidence of spinal or radha inal stenosis. C7-T1: There is no evidence of disc bulge or focal herniation. There is no evidence of spinal or fora donte stenosis. Postcontrast images reveal no pathologically enhancing lesions. IMPRESSION: 1. No cord lesions identified 2. Mild to moderate multilevel spondylytic changes as described above. Mild spinal canal narrowing at the C3-4, C4-5, C5-C6 levels. Multilevel foraminal narrowing. ACT 112: Negative or not required by law. Electronically signed by: Pepe Bonilla M.D. 12/02/2020 1:44 PM
[2020-12-02] MEDS: HYDROmorphone INJ 0.5 MG/0.5 ML SYR IV PRN ×2 (14:02→20:18)
--- NOTE | 2020-12-02 16:20 | Communication Note ---
Date of Service: December 02, 2020 Jessica is 64 years old is right-handed and was hospitalized last night because of her leg weakness which resulted in a fall and inability to rise into a standing posture for about 6 hours. She was found by her fianc and brought into the hospital and has had some mild electrolyte abnormalities and elevated CPK likely due to low-grade rhabdomyolysis and the level is now clearing and neurology has been called because of the leg weakness which according to her has been coming on since July when she began using a cane and has progressed to the point th at she has had several falls but there has been no associated numbness tingling muscular cramping, sensation of imbalance or clumsiness and her only issue appears to be that of proximal more than distal muscle weakness with inability to get out of a chair and this is now confounded by the fact that she has some right hip pain onset after her fall and not associated particularly with any demonstrable pathology in the hip joint spar I reviewed the chart and suggested because of her history of gastric bypass and some period of weight loss surrounding the illness and of her mother about a year ago that we look for possible copper deficiency myelopathy in addition to monitoring her B12 level which was being done. Serum copper is pending and imaging of the thoracic and cervical spines thus far is normal does not show any the typical features of posterior column changes that we see and copper deficiency myelopathy so this issue is "off the table" All this occurs in the setting of a history of a small bowel intussusception which is theoretically still present on CT scan but is clinically silent and surgery is simply observing this, chronic knee pain, history of DVT, history of an appendectomy, herniorrhaphy, gastric bypass in the remote past and type 2 diabetes along with some anxiety and depression She is also on medications that include albuterol bupropion calcium carbonate, cholecalciferol, Trulicity, levothyroxine, lisinopril, lorazepam, Metformin, trazodone, Vitron-C, Coumadin and Reclast She has allergies to prochlorperazine sulfa and morphine Social history reveals a be living alone but she does have a significant other a non-smoker nonconsumer of ethanol Family history is noncontributory Systems review reveals a gradually decreasing gait over the past 4 to 5 months requiring the use of cane at home since July and I have the impression there is been some gradual decline in gait for longer than this but have a hard time documenting it. She denies any real headaches hearing loss vertigo visual disturbance denies any new cardiovascular pulmonary gastrointestinal genitourinary musculoskeletal dermatologic or hematologic issues does talk about chronic knee pain and hip pain and on the how far her hip issues have been investigated radiographically or clinically From a neurologic point of view she really denies any numbness or tingling in her feet any burning pain in her feet or anything that would to my mind bring up the possibility of a diabetic small fiber large fiber polyneuropathy she doesn't have this aching pain in her thighs that might bring up a diabetic radicular plexopathy Exam reveals blood pressure 160/86 pulse 80 respirations 16 she is afebrile She is awake alert oriented in three spheres but seems to have a somewhat flatte geraldine affect Cranial nerves are intact with normal eye movements normal facial motility and strength no facial sensation clear speech with a somewhat monotonous component Gait when she gets up out of a chair which takes some time is reasonably good with the assistance of a cane and he knows any spasticity or ataxia no tremor or tics or choreiform activity Reflexes are actually all present although little hypoactive at the ankles. Toes are downgoing no Ortez signs are seen Strength testing reveals reasonably good quadricep strength reasonably good thigh flexors and excellent distal muscle the lower extremities and is normal in the upper extremities. I don't see any atrophy or fasciculation of any muscle group testing today is hampered by the right hip pain and by restriction of abduction and abduction of both hips worse on the right Sensory examination despite the diabetes it shows only some mild vibratory loss distally lower extremities and reveals intact proprioception light touch temperature and pinprick Radiographic studies of the hips and pelvis have revealed minor degenerative changes only Laboratory studies included an elevated CPK which is trending downwards and lik chikis reflects rhabdomyolysis Impression at this time is nonspecific proximal muscle weakness syndrome whose cause remains unknown I really see no evidence for myelopathy imaging studies of the spine have been negative and examination doesn't show very much for neuropathy and I really doubt that this is a myopathy Occasionally there is a chronic low-grade diabetic related amyotrophy which is painless, affects proximal muscles of the lower extremities and may be operating in this particular case Recommendations would be to obviously have her assessed by physical therapy, consider some inpatient rehabilitation if she meets criteria and at some point have her undergo electrodiagnostic studies of the lower extremities and upper extremities searching for evidence of a neuromyopathy and her proximal thigh muscles I will check back over the weekend and by chart review but at this point I don't think we need to continue to do any further inpatient neurologic evaluation and she could be seen in our office as a hospital follow-up after discharge and further arrangements made for testing at that point Some of this can be contingent upon whether or not she is felt to be a candidate for inpatient rehabilitation or whether outpatient evaluation with in-home therapy is going to be elected Charles Farr MD
--- NOTE | 2020-12-02 16:37 | Hospitalist Progress Note ---
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 Complains some some weakness involving right-sided extremities and pain in the right hip Suffered a fall yesterday and could not manage to get up Initial investigations came out to be unremarkable including MRI of the cervical and thoracic spine Appreciate neurology input and recommendation CPK level is normal We will continue PT and OT evaluation History of gastric bypass surgery Vitamin B12 and folate level Electrolyte imbalance will be corrected by appropriate supplementation (2) Acute pain of right hip: Likely secondary to osteoarthritis (3) Small bowel intussusception: CT scan of the abdomen and pelvis documented to have possible intussusception Appreciate surgical input and recommendation No evidence of intussusception identified (4) Diabetes mellitus, type 2: Continue with current management SSI (5) Deep vein thrombosis: History of deep vein thrombosis and pulmonary embolism History of [place] filter placement (6) Depression: No acute anxiety and/or depression (7) Hypothyroidism: Continue supplement Admission and Anticipated Discharge Date Admission Date: December 02, 2020 Subjective 12/02/2020 The patient was seen and examined in medical floor She was admitted with right-sided weakness and history of fall and could not manage to get up She still has the complaints of right upper and lower extremity weakness and denies any other symptoms She has been falling frequently at home Review of Systems Review of Systems: All systems reviewed and are unremarkable except as noted below Musculoskeletal: Minimal weakness involving the right side extremities. No acute arthritis in any joint Physical Exam Physical Exam: Sitting on a chair without any apparent distress Constitutional: well developed, well nourished and + obese; not ill appearing Eyes: PERRL, conjunctivae normal, anicteric sclerae ENMT: external ear and nose normal, oropharynx normal Neck: trachea midline, no thyromegaly Respiratory: no respiratory distress Cardiovascular: Rate/Rhythm: regular rate and regular rhythm Heart Sounds: no murmur Extremities: + edema (Trace edema bilaterally more on the right than the left) Gastrointestinal (Abdomen): Inspection/Auscultation: normal bowel sounds; abdomen not distended Percussion/Palpation: abdomen soft; abdomen nontender Musculoskeletal: No acute arthritis in any joint Neurologic: Alert, awake and oriented x3. She does have weakness involving the right lower extremity but is limited due to pain in the right hip joint/groin Psychiatric: A+Ox3, euthymic affect Lymphatic: no cervical or axillary lymphadenopathy Results & Data Results & Data ([facility]) Vital Signs (Past 12 Hours) Vital Signs Temp Pulse Resp BP Pulse Ox 12/02/20 14:59 36.8 C 80 16 160/86 H 97 12/02/20 05:48 36.9 C 73 16 129/72 96 Laboratory Results Short CBC 12/01/20 12/02/20 Range/Units 18:08 06:15 WBC 9.86 8.87 (4.8-10.8) K/uL Hgb 12.4 11.3 L (12.0-16.0) g/dL Hct 36.4 L 33.8 L (37-47) % Plt Count 282 281 (130-400) K/uL BMP 12/01/20 12/02/20 19:00 06:15 Sodium 139 142 Potassium 3.3 L 3.9 D Chloride 105 108 H Carbon Dioxide 26 27 BUN 15 16 Creatinine 0.97 0.96 Glucose 141 H 124 H Calcium 9.7 9.2 Cardiac Enzymes 12/01/20 12/02/20 Range/Units 19:00 06:15 Total Creatine Kinase 533 H 321 H (26-192) U/L Troponin I < 0.015 (0-0.045) ng/ml Liver Function 12/01/20 Range/Units 19:00 Total Bilirubin 0.6 (0.2-1) mg/dl AST 27 (15-37) U/L ALT 16 (12-78) U/L Alkaline Phosphatase 113 (45-117) U/L Albumin 3.1 L (3.4-5.0) gm/dl Urine 12/02/20 Range/Units 09:00 Urine Color Dark Yellow Urine Appearance Clear (Clear) Urine pH 5.0 (4.5-7.5) Ur Specific [place] > 1.045 H (1.000-1.030) Urine Protein Trace H (Negative) Urine Glucose (UA) Negative (Negative) Medications Administered Current Inpatient Medications Albuterol (Albuterol Hfa 8 Gm Inhaler) 2 puffs INH QIDR PRN PRN Reason: Shortness Of Breath Or Wheezing Stop: 01/01/21 01:56 Ascorbic Acid (Ascorbic Acid 500 Mg Tab) 250 mg PO MoWeFr@0900 [facility] Stop: 01/01/21 08:59 Last Admin: 12/02/20 08:40 Dose: 250 mg Documented by: Bupropion HCl (Bupropion Sr 100 Mg Tabcr) 200 mg PO BID [facility] Stop: 01/01/21 08:59 Last Admin: 12/02/20 08:39 Dose: 200 mg Documented by: Calcium Carbonate (Calcium Carbonate 1250mg Tab) 1,250 mg PO DAILY [facility]; Protocol Stop: 01/01/21 08:59 Last Admin: 12/02/20 08:40 Dose: 1,250 mg Documented by: Dextrose (Dextrose 50% 50 Ml Syringe) 25 - 50 ml IV UD PRN; Protocol PRN Reason: Hypoglycemia Protocol Stop: 01/01/21 07:59 Ferrous Sulfate (Ferrous Sulfate 325 Mg Tab) 325 mg PO MoWeFr@0900 [facility] Stop: 01/01/21 08:59 Last Admin: 12/02/20 08:40 Dose: 325 mg Documented by: Glucagon (Glucagon For Inj 1 Mg Vial) 1 mg IM UD PRN; Protocol PRN Reason: Hypoglycemia Protocol Stop: 01/01/21 07:59 Glucose (Glucose 40% Gel 15 Gm Tube) 15 - 30 gm PO UD PRN; Protocol PRN Reason: Hypoglycemia Protocol Stop: 01/01/21 07:59 Glucose (Glucose 10 Tabs/Tube) 4 - 8 tabs PO UD PRN; Protocol PRN Reason: Hypoglycemia Protocol Stop: 01/01/21 07:59 Hydromorphone HCl (Hydromorphone Inj 0.5 Mg/0.5 Ml Syr) 0.5 mg IV Q3H PRN PRN Reason: Pain Stop: 12/16/20 02:11 Last Admin: 12/02/20 14:02 Dose: 0.5 mg Documented by: Sodium Chloride (Nss 1000ml) 1,000 mls @ 100 mls/hr IV .Q10H [facility] Stop: 01/01/21 08:59 Last Admin: 12/02/20 10:22 Dose: 100 mls/hr Documented by: Insulin Aspart (Insulin Aspart 100 Units/Ml 3 Ml Pen) 0 units SC ACHS [facility] Stop: 01/01/21 07:29 Last Admin: 12/02/20 13:56 Dose: Not Given Documented by: Levothyroxine Sodium (Levothyroxine Sodium 100 Mcg Tablet) 100 mcg PO DAILYBB [facility] Stop: 01/01/21 06:29 Last Admin: 12/02/20 05:57 Dose: 100 mcg Documented by: Lisinopril (Lisinopril 5 Mg Tab) 5 mg PO QPM [facility] Stop: 01/01/21 20:59 Lorazepam (Lorazepam 0.5 Mg Tab) 0.5 mg PO TID PRN PRN Reason: Anxiety Stop: 01/01/21 01:52 Last Admin: 12/02/20 02:04 Dose: 0.5 mg Documented by: Miscellaneous (Carbohydrates For Hypoglycemia ) 15 - 30 gm PO UD PRN PRN Reason: Hypoglycemia Treatment Stop: 01/01/21 07:59 Trazodone HCl (Trazodone Hcl 50 Mg Tab) 50 mg PO HS [facility] Stop: 01/01/21 20:59 Vitamin D (Cholecalciferol 1,000 Units 25 Mcg Tab) 3,000 units PO DAILY [facility] Stop: 01/01/21 08:59 Last Admin: 12/02/20 08:40 Dose: 3,000 units Documented by: Warfarin Sodium (Warfarin Sod 4 Mg Tab) 4 mg PO DAILY@1600 [facility] Stop: 01/01/21 15:59
[2020-12-02] MEDS: WARFARIN SOD 4 MG TAB PO SCH (16:56)
[2020-12-02] MEDS: traZODone HCL 50 MG TAB PO SCH (21:10)
[2020-12-02] MEDS: lisinopril 5 MG TAB PO SCH (21:10)
[2020-12-02] MEDS: ONDANSETRON INJ 2 MG/ML 2 ML VIAL IV PRN (22:15)
[2020-12-03] MEDS: HYDROmorphone INJ 0.5 MG/0.5 ML SYR IV PRN ×5 (01:08→22:54)
[2020-12-03] MEDS: LEVOTHYROXINE SODIUM 100 MCG TABLET PO SCH (05:40)
[2020-12-03] MEDS: SODIUM CHLORIDE 0.9% 1000ML 1,000 ML IV SCH ×3 (05:40→23:25)
[2020-12-03 06:13] LABS: Basophils # (auto) 0.04 K/uL (0-0.2); Basophils % (auto) 0.6 %; Eosinophils # (auto) 0.25 K/uL (0-0.5); Eosinophils % (auto) 3.8 %; Hematocrit (blood only) 31.2 % (37-47); Immature Granulocytes # (auto) 0.04 K/uL (0.00-0.02); Immature Granulocytes % (auto) 0.6 %; Lymphocytes # (auto) 2.53 K/uL (1.2-3.4); Lymphocytes % (auto) 38.2 %; Mean Corpuscular Hemoglobin 30.3 pg (25-34); Mean Corpuscular Hgb Conc 32.1 g/dL (32-36); Mean Corpuscular Volume 94.5 fL (80-100); Mean Platelet Volume 8.9 fL (7.4-10.4); Monocytes # (auto) 0.41 K/uL (0.11-0.59); Monocytes % (auto) 6.2 %; Neutrophils # (auto) 3.36 K/uL (1.4-6.5); Neutrophils % (auto) 50.6 %; Platelet Count 245 K/uL (130-400); RDW Coefficient of Variation 13.7 % (11.5-14.5); RDW Standard Deviation 46.8 fL (36.4-46.3); White Blood Count 6.63 K/uL (4.8-10.8)
[2020-12-03 06:29] LABS: INR 1.3 (0.9-1.1); Prothrombin Time 13.2 Seconds (9.0-12.0)
[2020-12-03 06:44] LABS: BUN Creatinine Ratio 16.1 (10-20); Calcium 8.7 mg/dl (8.5-10.1); Creatinine Clr Calc Pharmacy 55.1 ml/min; Est GFR (African American) 63.3 ml/min; Est GFR (Non-African American) 54.6 ml/min; Potassium 4.1 mmol/L (3.5-5.1)
[2020-12-03] MEDS: buPROPion SR 100 MG TABCR PO SCH ×2 (08:44→20:40)
[2020-12-03] MEDS: CALCIUM CARBONATE 1250MG TAB PO SCH (08:44)
[2020-12-03] MEDS: CHOLECALCIFEROL 1,000 UNITS 25 MCG TAB PO SCH (08:44)
[2020-12-03] MEDS: INSULIN ASPART 100 UNITS/ML 3 ML PEN SC SCH ×4 (08:47→21:12)
--- NOTE | 2020-12-03 11:34 | Hospitalist Progress Note ---
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 Complains some some weakness involving right-sided extremities and pain in the right hip Suffered a fall yesterday and could not manage to get up Initial investigations came out to be unremarkable including MRI of the cervical and thoracic spine Appreciate neurology input and recommendation CPK level is minimally elevated and the repeat test of CPK improved We will continue PT and OT evaluation History of gastric bypass surgery Vitamin B12 and folate level Electrolyte imbalance will be corrected by appropriate supplementation (2) Acute pain of right hip: Likely secondary to osteoarthritis Right upper thigh pain and tenderness with movement of the right lower extremity Moderate tenderness noted over right upper lateral thigh without any significant bruising Has been getting pain medications orally and IV Will apply local diclofenac (3) Small bowel intussusception: CT scan of the abdomen and pelvis documented to have possible intussusception Appreciate surgical input and recommendation No evidence of intussusception identified (4) Diabetes mellitus, type 2: Continue with current management SSI (5) Deep vein thrombosis: History of deep vein thrombosis and pulmonary embolism History of [place] filter placement (6) Depression: No acute anxiety and/or depression (7) Hypothyroidism: Continue supplement Admission and Anticipated Discharge Date Admission Date: December 02, 2020 Subjective 12/02/2020 The patient was seen and examined in medical floor She was admitted with right-sided weakness and history of fall and could not manage to get up She still has the complaints of right upper and lower extremity weakness and denies any other symptoms She has been falling frequently at home 12/03/2020 The patient was seen and examined in medical floor She has been complaining of pain in the right upper anterior and lateral thigh The area does not seems to be bruised but very tender to palpate Still complains to have weakness involving the right lower extremity Denies any other symptoms Review of Systems Review of Systems: All systems reviewed and are unremarkable except as noted below Musculoskeletal: + muscle weakness (Right thigh) Minimal weakness involving the right side extremities. No acute arthritis in any joint Physical Exam Physical Exam: Sitting on a chair without any apparent distress Constitutional: well developed, well nourished and + obese; not ill appearing Eyes: PERRL, conjunctivae normal, anicteric sclerae ENMT: external ear and nose normal, oropharynx normal Neck: trachea midline, no thyromegaly Respiratory: no respiratory distress Cardiovascular: Rate/Rhythm: regular rate and regular rhythm Heart Sounds: no murmur Extremities: + edema (Trace edema bilaterally more on the right than the left) Gastrointestinal (Abdomen): Inspection/Auscultation: normal bowel sounds; abdomen not distended Percussion/Palpation: abdomen soft; abdomen nontender Musculoskeletal: Extremities: + limited ROM of extremities (Limited movement of right lower extremity due to pain) Has significant tenderness involving the right upper anterior and lateral thigh area without any obvious bruising Neurologic: Alert, awake and oriented x3 Psychiatric: A+Ox3, euthymic affect Lymphatic: no cervical or axillary lymphadenopathy Results & Data Results & Data ([facility]) Vital Signs (Past 12 Hours) Vital Signs Temp Pulse Pulse Resp BP Pulse Ox 12/03/20 07:54 37.0 C 65 15 130/78 99 12/03/20 07:22 36.7 C 67 16 145/80 H 94 Laboratory Results Short CBC 12/03/20 Range/Units 05:45 WBC 6.63 (4.8-10.8) K/uL Hgb 10.0 L (12.0-16.0) g/dL Hct 31.2 L (37-47) % Plt Count 245 (130-400) K/uL BMP 12/03/20 05:45 Sodium 141 Potassium 4.1 Chloride 109 H Carbon Dioxide 25 BUN 17 Creatinine 1.08 Glucose 112 H Calcium 8.7 Cardiac Enzymes 12/03/20 Range/Units 05:45 Total Creatine Kinase 216 H (26-192) U/L Medications Administered Current Inpatient Medications Albuterol (Albuterol Hfa 8 Gm Inhaler) 2 puffs INH QIDR PRN PRN Reason: Shortness Of Breath Or Wheezing Stop: 01/01/21 01:56 Ascorbic Acid (Ascorbic Acid 500 Mg Tab) 250 mg PO MoWeFr@0900 [facility] Stop: 01/01/21 08:59 Last Admin: 12/02/20 08:40 Dose: 250 mg Documented by: Bupropion HCl (Bupropion Sr 100 Mg Tabcr) 200 mg PO BID [facility] Stop: 01/01/21 08:59 Last Admin: 12/03/20 08:44 Dose: 200 mg Documented by: Calcium Carbonate (Calcium Carbonate 1250mg Tab) 1,250 mg PO DAILY [facility]; Protocol Stop: 01/01/21 08:59 Last Admin: 12/03/20 08:44 Dose: 1,250 mg Documented by: Dextrose (Dextrose 50% 50 Ml Syringe) 25 - 50 ml IV UD PRN; Protocol PRN Reason: Hypoglycemia Protocol Stop: 01/01/21 07:59 Ferrous Sulfate (Ferrous Sulfate 325 Mg Tab) 325 mg PO MoWeFr@0900 [facility] Stop: 01/01/21 08:59 Last Admin: 12/02/20 08:40 Dose: 325 mg Documented by: Glucagon (Glucagon For Inj 1 Mg Vial) 1 mg IM UD PRN; Protocol PRN Reason: Hypoglycemia Protocol Stop: 01/01/21 07:59 Glucose (Glucose 40% Gel 15 Gm Tube) 15 - 30 gm PO UD PRN; Protocol PRN Reason: Hypoglycemia Protocol Stop: 01/01/21 07:59 Glucose (Glucose 10 Tabs/Tube) 4 - 8 tabs PO UD PRN; Protocol PRN Reason: Hypoglycemia Protocol Stop: 01/01/21 07:59 Hydromorphone HCl (Hydromorphone Inj 0.5 Mg/0.5 Ml Syr) 0.5 mg IV Q3H PRN PRN Reason: Pain Stop: 12/16/20 02:11 Last Admin: 12/03/20 11:07 Dose: 0.5 mg Documented by: Sodium Chloride (Nss 1000ml) 1,000 mls @ 100 mls/hr IV .Q10H [facility] Stop: 01/01/21 08:59 Last Admin: 12/03/20 05:40 Dose: 100 mls/hr Documented by: Insulin Aspart (Insulin Aspart 100 Units/Ml 3 Ml Pen) 0 units SC ACHS [facility] Stop: 01/01/21 07:29 Last Admin: 12/03/20 08:47 Dose: 3 units Documented by: Levothyroxine Sodium (Levothyroxine Sodium 100 Mcg Tablet) 100 mcg PO DAILYBB [facility] Stop: 01/01/21 06:29 Last Admin: 12/03/20 05:40 Dose: 100 mcg Documented by: Lisinopril (Lisinopril 5 Mg Tab) 5 mg PO QPM [facility] Stop: 01/01/21 20:59 Last Admin: 12/02/20 21:10 Dose: 5 mg Documented by: Lorazepam (Lorazepam 0.5 Mg Tab) 0.5 mg PO TID PRN PRN Reason: Anxiety Stop: 01/01/21 01:52 Last Admin: 12/02/20 02:04 Dose: 0.5 mg Documented by: Miscellaneous (Carbohydrates For Hypoglycemia ) 15 - 30 gm PO UD PRN PRN Reason: Hypoglycemia Treatment Stop: 01/01/21 07:59 Ondansetron HCl (Ondansetron Inj 2 Mg/Ml 2 Ml Vial) 4 mg IV Q6H PRN PRN Reason: Nausea And Vomiting Stop: 01/01/21 21:38 Last Admin: 12/02/20 22:15 Dose: 4 mg Documented by: Trazodone HCl (Trazodone Hcl 50 Mg Tab) 50 mg PO HS [facility] Stop: 01/01/21 20:59 Last Admin: 12/02/20 21:10 Dose: 50 mg Documented by: Vitamin D (Cholecalciferol 1,000 Units 25 Mcg Tab) 3,000 units PO DAILY [facility] Stop: 01/01/21 08:59 Last Admin: 12/03/20 08:44 Dose: 3,000 units Documented by: Warfarin Sodium (Warfarin Sod 4 Mg Tab) 4 mg PO DAILY@1600 [facility] Stop: 01/01/21 15:59 Last Admin: 12/02/20 16:56 Dose: 4 mg Documented by:
--- NOTE | 2020-12-03 11:49 | Communication Note ---
Date of Service: December 03, 2020 Jessica looks about the same today. She has little more hip pain and the scans have shown no trauma but I suspect she did exacerbate the underlying degenerati ve changes she has with the fall She does have a mild underlying proximal muscle weakness syndrome of uncertain cause. This is emerged over the past year. It has been painless with the exception of the pain associated with the hip injury suffered during the recent fall and has been no sensory loss and very little signs of polyneuropathy despite her diabetes Her CPK is now in the normal range so this was probably rhabdomyolysis rather than an underlying myopathy She admits that her activity level this year has been much less and it was a year ago and there may be an element of deconditioning here My recommendations remain as they were yesterday i.e. to have an outpatient EMG to search for any subtle evidence for a neuromyopathy involving the proximal muscles of both legs and to check for any unexpected significant polyneuropathy which was clinically undetectable We are awaiting a serum copper level but since she does not have a myelopathy and MRI shows none of the typical changes in the posterior columns so this is probably going to be normal I feel she probably would benefit from some inpatient rehabilitation services but discharge plans remain to be established upon be driven by her insurance plan The only follow-up she is going to need neurologically is the EMG and timing of this will be dependent upon whether she gets admitted to a rehabilitation hospital and when she is discharged or whether she simply returns home and probably could be coordinated through her primary care physician I would check a TSH level just to be on the safe side as she does appear to be a little depressed flat and may have some subclinical hypothyroidism which might explain some of the muscle weakness. I have taken the liberty of ordering the study Neurology is going to sign off at this point Charles Farr MD
[2020-12-03] MEDS: DICLOFENAC SOD 1% GEL 100 GM TUBE EXT SCH ×2 (12:45→20:39)
[2020-12-03] MEDS: ONDANSETRON INJ 2 MG/ML 2 ML VIAL IV PRN (15:57)
[2020-12-03] MEDS: WARFARIN SOD 4 MG TAB PO SCH (16:01)
--- NOTE | 2020-12-03 16:29 | Electrocardiogram Report ---
Test Reason : Blood Pressure : / mmHG Vent. Rate : 070 BPM Atrial Rate : 070 BPM P-R Int : 166 ms QRS Dur : 088 ms QT Int : 432 ms P-R-T Axes : 024 008 018 degrees QTc Int : 466 ms Normal sinus rhythm Normal ECG When compared with ECG of 23-NOV-2013 16:46, No significant change was found Confirmed by Santi Peterson ([id number]) on 12/03/2020 4:28:47 PM Referred By: REFERRED SELF Confirmed By:Salomon Peterson
[2020-12-03] MEDS: traZODone HCL 50 MG TAB PO SCH (20:40)
[2020-12-03] MEDS: lisinopril 5 MG TAB PO SCH (20:41)
[2020-12-04] MEDS: ONDANSETRON INJ 2 MG/ML 2 ML VIAL IV PRN ×2 (02:28→12:25)
[2020-12-04] MEDS: LEVOTHYROXINE SODIUM 100 MCG TABLET PO SCH (06:04)
[2020-12-04] MEDS: buPROPion SR 100 MG TABCR PO SCH ×2 (08:10→20:43)
[2020-12-04] MEDS: CHOLECALCIFEROL 1,000 UNITS 25 MCG TAB PO SCH (08:10)
[2020-12-04] MEDS: CALCIUM CARBONATE 1250MG TAB PO SCH (08:10)
[2020-12-04] MEDS: SODIUM CHLORIDE 0.9% 1000ML 1,000 ML IV SCH ×2 (08:11→18:11)
[2020-12-04] MEDS: DICLOFENAC SOD 1% GEL 100 GM TUBE EXT SCH ×2 (08:11→20:44)
[2020-12-04] MEDS: INSULIN ASPART 100 UNITS/ML 3 ML PEN SC SCH ×4 (08:18→21:15)
[2020-12-04] MEDS: HYDROmorphone INJ 0.5 MG/0.5 ML SYR IV PRN ×2 (11:56→20:47)
--- NOTE | 2020-12-04 12:29 | Hospitalist Progress Note ---
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 Complains some some weakness involving right-sided extremities and pain in the right hip Suffered a fall yesterday and could not manage to get up Initial investigations came out to be unremarkable including MRI of the cervical and thoracic spine Appreciate neurology input and recommendation CPK level is minimally elevated and the repeat test of CPK improved We will continue PT and OT evaluation History of gastric bypass surgery Vitamin B12 and folate level Electrolyte imbalance will be corrected by appropriate supplementation Complain of some dyspeptic symptom with nausea We will add Protonix (2) Acute pain of right hip: Likely secondary to osteoarthritis Right upper thigh pain and tenderness with movement of the right lower extremity Moderate tenderness noted over right upper lateral thigh without any significant bruising Has been getting pain medications orally and IV Will apply local diclofenac Pain seems to be better (3) Small bowel intussusception: CT scan of the abdomen and pelvis documented to have possible int ussusception Appreciate surgical input and recommendation No evidence of intussusception identified (4) Diabetes mellitus, type 2: Continue with current management SSI (5) Deep vein thrombosis: History of deep vein thrombosis and pulmonary embolism History of Carlie filter placement Has been on Coumadin-on hold now due to possible bruising involving the right thigh with decreasing hemoglobin (6) Depression: No acute anxiety and/or depression (7) Hypothyroidism: Continue supplement DVT prophylaxis SCDs for now Increase ambulation and physical therapy We will hold Coumadin Admission and Anticipated Discharge Date Admission Date: December 04, 2020 Subjective 12/02/2020 The patient was seen and examined in medical floor She was admitted with right-sided weakness and history of fall and could not manage to get up She still has the complaints of right upper and lower extremity weakness and den ies any other symptoms She has been falling frequently at home 12/03/2020 The patient was seen and examined in medical floor She has been complaining of pain in the right upper anterior and lateral thigh The area does not seems to be bruised but very tender to palpate Still complains to have weakness involving the right lower extremity Denies any other symptoms 12/04/2020 The patient was seen and examined in medical for She has had some nausea but no vomiting this morning Her right thigh pain is better Denies any other significant symptoms Review of Systems Review of Systems: All systems reviewed and are unremarkable except as noted below Musculoskeletal: + muscle weakness (Right thigh) Minimal weakness involving the right side extremities. No acute arthritis in any joint Physical Exam Physical Exam: Sitting on a chair without any apparent distress Constitutional: well developed, well nourished and + obese; not ill appearing Eyes: PERRL, conjunctivae normal, anicteric sclerae ENMT: external ear and nose normal, oropharynx normal Neck: trachea midline, no thyromegaly Respiratory: no respiratory distress Cardiovascular: Rate/Rhythm: regular rate and regular rhythm Heart Sounds: no murmur Extremities: + edema (Trace edema bilaterally more on the right than the left) Gastrointestinal (Abdomen): Inspection/Auscultation: normal bowel sounds; abdomen not distended Percussion/Palpation: abdomen soft; abdomen nontender Musculoskeletal: Extremities: + limited ROM of extremities (Limited movement of right lower extremity due to pain) Neurologic: Alert, awake and oriented x3. Still has right lower extremity weakness mostly the proximal muscles and tenderness involving the right upper thigh Psychiatric: A+Ox3, euthymic affect Lymphatic: no cervical or axillary lymphadenopathy Results & Data Results & Data ([facility]) Vital Signs (Past 12 Hours) Vital Signs Temp Pulse Resp BP Pulse Ox 12/04/20 11:53 36.9 C 72 16 128/76 98 12/04/20 07:37 36.9 C 70 18 126/72 96 Medications Administered Current Inpatient Medications Albuterol (Albuterol Hfa 8 Gm Inhaler) 2 puffs INH QIDR PRN PRN Reason: Shortness Of Breath Or Wheezing Stop: 01/01/21 01:56 Ascorbic Acid (Ascorbic Acid 500 Mg Tab) 250 mg PO MoWeFr@0900 [facility] Stop: 01/01/21 08:59 Last Admin: 12/02/20 08:40 Dose: 250 mg Documented by: Bupropion HCl (Bupropion Sr 100 Mg Tabcr) 200 mg PO BID [facility] Stop: 01/01/21 08:59 Last Admin: 12/04/20 08:10 Dose: 200 mg Documented by: Calcium Carbonate (Calcium Carbonate 1250mg Tab) 1,250 mg PO DAILY [facility]; Protocol Stop: 01/01/21 08:59 Last Admin: 12/04/20 08:10 Dose: 1,250 mg Documented by: Dextrose (Dextrose 50% 50 Ml Syringe) 25 - 50 ml IV UD PRN; Protocol PRN Reason: Hypoglycemia Protocol Stop: 01/01/21 07:59 Diclofenac Sodium (Diclofenac Sod 1% Gel 100 Gm Tube) 4 gm EXT BID [facility] Stop: 01/02/21 11:44 Last Admin: 12/04/20 08:11 Dose: 4 gm Documented by: Ferrous Sulfate (Ferrous Sulfate 325 Mg Tab) 325 mg PO MoWeFr@0900 [facility] Stop: 01/01/21 08:59 Last Admin: 12/02/20 08:40 Dose: 325 mg Documented by: Glucagon (Glucagon For Inj 1 Mg Vial) 1 mg IM UD PRN; Protocol PRN Reason: Hypoglycemia Protocol Stop: 01/01/21 07:59 Glucose (Glucose 40% Gel 15 Gm Tube) 15 - 30 gm PO UD PRN; Protocol PRN Reason: Hypoglycemia Protocol Stop: 01/01/21 07:59 Glucose (Glucose 10 Tabs/Tube) 4 - 8 tabs PO UD PRN; Protocol PRN Reason: Hypoglycemia Protocol Stop: 01/01/21 07:59 Hydromorphone HCl (Hydromorphone Inj 0.5 Mg/0.5 Ml Syr) 0.5 mg IV Q3H PRN PRN Reason: Pain Stop: 12/16/20 02:11 Last Admin: 12/04/20 11:56 Dose: 0.5 mg Documented by: Sodium Chloride (Nss 1000ml) 1,000 mls @ 100 mls/hr IV .Q10H [facility] Stop: 01/01/21 08:59 Last Admin: 12/04/20 08:11 Dose: 100 mls/hr Documented by: Insulin Aspart (Insulin Aspart 100 Units/Ml 3 Ml Pen) 0 units SC ACHS [facility] Stop: 01/01/21 07:29 Last Admin: 12/04/20 12:21 Dose: 1 units Documented by: Levothyroxine Sodium (Levothyroxine Sodium 100 Mcg Tablet) 100 mcg PO DAILYBB [facility] Stop: 01/01/21 06:29 Last Admin: 12/04/20 06:04 Dose: 100 mcg Documented by: Lisinopril (Lisinopril 5 Mg Tab) 5 mg PO QPM [facility] Stop: 01/01/21 20:59 Last Admin: 12/03/20 20:41 Dose: 5 mg Documented by: Lorazepam (Lorazepam 0.5 Mg Tab) 0.5 mg PO TID PRN PRN Reason: Anxiety Stop: 01/01/21 01:52 Last Admin: 12/02/20 02:04 Dose: 0.5 mg Documented by: Miscellaneous (Carbohydrates For Hypoglycemia ) 15 - 30 gm PO UD PRN PRN Reason: Hypoglycemia Treatment Stop: 01/01/21 07:59 Ondansetron HCl (Ondansetron Inj 2 Mg/Ml 2 Ml Vial) 4 mg IV Q6H PRN PRN Reason: Nausea And Vomiting Stop: 01/01/21 21:38 Last Admin: 12/04/20 12:25 Dose: 4 mg Documented by: Trazodone HCl (Trazodone Hcl 50 Mg Tab) 50 mg PO HS [facility] Stop: 01/01/21 20:59 Last Admin: 12/03/20 20:40 Dose: 50 mg Documented by: Vitamin D (Cholecalciferol 1,000 Units 25 Mcg Tab) 3,000 units PO DAILY [facility] Stop: 01/01/21 08:59 Last Admin: 12/04/20 08:10 Dose: 3,000 units Documented by: Warfarin Sodium (Warfarin Sod 4 Mg Tab) 4 mg PO DAILY@1600 [facility] Stop: 01/01/21 15:59 Last Admin: 12/03/20 16:01 Dose: 4 mg Documented by:
[2020-12-04] MEDS: PANTOprazole 40 MG TAB PO SCH (13:08)
[2020-12-04] MEDS: WARFARIN SOD 4 MG TAB PO SCH (15:25)
[2020-12-04] MEDS: traZODone HCL 50 MG TAB PO SCH (20:43)
[2020-12-04] MEDS: lisinopril 5 MG TAB PO SCH (20:45)
[2020-12-05] MEDS: SODIUM CHLORIDE 0.9% 1000ML 1,000 ML IV SCH (03:39)
[2020-12-05] MEDS: ONDANSETRON INJ 2 MG/ML 2 ML VIAL IV PRN ×2 (03:40→20:12)
[2020-12-05] MEDS: LEVOTHYROXINE SODIUM 100 MCG TABLET PO SCH (05:27)
[2020-12-05 06:06] LABS: Basophils # (auto) 0.01 K/uL (0-0.2); Basophils % (auto) 0.2 %; Eosinophils % (auto) 3.4 %; Hematocrit (blood only) 30.2 % (37-47); Hemoglobin 9.9 g/dL (12.0-16.0); Immature Granulocytes # (auto) 0.02 K/uL (0.00-0.02); Immature Granulocytes % (auto) 0.3 %; Lymphocytes # (auto) 1.92 K/uL (1.2-3.4); Mean Corpuscular Hemoglobin 30.4 pg (25-34); Mean Corpuscular Hgb Conc 32.8 g/dL (32-36); Mean Corpuscular Volume 92.6 fL (80-100); Mean Platelet Volume 9.2 fL (7.4-10.4); Monocytes # (auto) 0.41 K/uL (0.11-0.59); Neutrophils # (auto) 3.26 K/uL (1.4-6.5); Neutrophils % (auto) 56.1 %; Platelet Count 206 K/uL (130-400); RDW Coefficient of Variation 13.6 % (11.5-14.5); RDW Standard Deviation 44.9 fL (36.4-46.3); Red Blood Count 3.26 M/uL (4.2-5.4); White Blood Count 5.82 K/uL (4.8-10.8)
[2020-12-05 06:15] LABS: INR 1.5 (0.9-1.1); Prothrombin Time 15.1 Seconds (9.0-12.0)
[2020-12-05 06:34] LABS: BUN Creatinine Ratio 18.1 (10-20); Calcium 8.2 mg/dl (8.5-10.1); Creatinine Clr Calc Pharmacy 73.4 ml/min; Est GFR (African American) 89.6 ml/min; Est GFR (Non-African American) 77.3 ml/min; Potassium 4.6 mmol/L (3.5-5.1)
[2020-12-05] MEDS: PANTOprazole 40 MG TAB PO SCH (08:15)
[2020-12-05] MEDS: FERROUS SULFATE 325 MG TAB PO SCH (08:16)
[2020-12-05] MEDS: ASCORBIC ACID 500 MG TAB PO SCH (08:16)
[2020-12-05] MEDS: CALCIUM CARBONATE 1250MG TAB PO SCH (08:16)
[2020-12-05] MEDS: CHOLECALCIFEROL 1,000 UNITS 25 MCG TAB PO SCH (08:17)
[2020-12-05] MEDS: buPROPion SR 100 MG TABCR PO SCH ×2 (08:17→22:05)
[2020-12-05] MEDS: DICLOFENAC SOD 1% GEL 100 GM TUBE EXT SCH ×2 (08:17→22:10)
[2020-12-05] MEDS: INSULIN ASPART 100 UNITS/ML 3 ML PEN SC SCH ×4 (08:46→22:15)
--- NOTE | 2020-12-05 12:47 | Hospitalist Progress Note ---
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 Complains some some weakness involving right-sided extremities and pain in the right hip Suffered a fall yesterday and could not manage to get up Initial investigations came out to be unremarkable including MRI of the cervical and thoracic spine Appreciate neurology input and recommendation CPK level is minimally elevated and the repeat test of CPK improved We will continue PT and OT evaluation Will need rehab placement Will have outpatient neuro appointment and EMG History of gastric bypass surgery Vitamin B12 and folate level Electrolyte imbalance will be corrected by appropriate supplementation Complain of some dyspeptic symptom with nausea We will add Protonix Nausea and epigastric discomfort are better (2) Acute pain of right hip: Likely secondary to osteoarthritis Right upper thigh pain and tenderness with movement of the right lower extremity Moderate tenderness noted over right upper lateral thigh without any significant bruising Has been getting pain medications orally and IV Will apply local diclofenac Pain seems to be better (3) Small bowel intussusception: CT scan of the abdomen and pelvis documented to have possible intussusception Appreciate surgical input and recommendation No evidence of intussusception identified (4) Diabetes mellitus, type 2: Continue with current management SSI (5) Deep vein thrombosis: History of deep vein thrombosis and pulmonary embolism History of Carlie filter placement Has been on Coumadin-on hold now due to possible bruising involving the right thigh with decreasing hemoglobin Coumadin restarted INR is 1.5 today (6) Depression: No acute anxiety and/or depression (7) Hypothyroidism: Continue supplement DVT prophylaxis SCDs for now Increase ambulation and physical therapy We will hold Coumadin Admission and Anticipated Discharge Date Admission Date: December 04, 2020 Subjective 12/02/2020 The patient was seen and examined in medical floor She was admitted with right-sided weakness and history of fall and could not manage to get up She still has the complaints of right upper and lower extremity weakness and denies any other symptoms She has been falling frequently at home 12/03/2020 The patient was seen and examined in medical floor She has been complaining of pain in the right upper anterior and lateral thigh The area does not seems to be bruised but very tender to palpate Still complains to have weakness involving the right lower extremity Denies any other symptoms 12/04/2020 The patient was seen and examined in medical for She has had some nausea but no vomiting this morning Her right thigh pain is better Denies any other significant symptoms 12/05/2020 The patient was seen and examined in medical floor Her pain in the right upper thigh is better but he still complains of right hip pain with activities Still has weakness involving the right lower extremity Her epigastric discomfort is better Review of Systems Review of Systems: All systems reviewed and are unremarkable except as noted below Musculoskeletal: + muscle weakness (Right thigh) Minimal weakness involving the right side extremities. No acute arthritis in any joint Physical Exam Physical Exam: Sitting on a chair without any apparent distress Constitutional: well developed, well nourished and + obese; not ill appearing Eyes: PERRL, conjunctivae normal, anicteric sclerae ENMT: external ear and nose normal, oropharynx normal Neck: trachea midline, no thyromegaly Respiratory: no respiratory distress Cardiovascular: Rate/Rhythm: regular rate and regular rhythm Heart Sounds: no murmur Extremities: + edema (Trace edema bilaterally more on the right than the left) Gastrointestinal (Abdomen): Inspection/Auscultation: normal bowel sounds; abdomen not distended Percussion/Palpation: abdomen soft; abdomen nontender Musculoskeletal: Extremities: + limited ROM of extremities (Limited movement of right lower extremity due to pain) Pain in the right upper thigh and also hip pain with movement of the right lower extremity Neurologic: Has weakness involving the right lower extremity Psychiatric: A+Ox3, euthymic affect Lymphatic: no cervical or axillary lymphadenopathy Results & Data Results & Data ([facility]) Vital Signs (Past 12 Hours) Vital Signs Temp Pulse Resp BP Pulse Ox 12/05/20 07:30 36.2 C L 69 18 135/82 94 Laboratory Results Short CBC 12/05/20 Range/Units 05:46 WBC 5.82 (4.8-10.8) K/uL Hgb 9.9 L (12.0-16.0) g/dL Hct 30.2 L (37-47) % Plt Count 206 (130-400) K/uL BMP 12/05/20 05:46 Sodium 143 Potassium 4.6 Chloride 113 H Carbon Dioxide 26 BUN 15 Creatinine 0.81 Glucose 123 H Calcium 8.2 L Medications Administered Current Inpatient Medications Albuterol (Albuterol Hfa 8 Gm Inhaler) 2 puffs INH QIDR PRN PRN Reason: Shortness Of Breath Or Wheezing Stop: 01/01/21 01:56 Ascorbic Acid (Ascorbic Acid 500 Mg Tab) 250 mg PO MoWeFr@0900 [facility] Stop: 01/01/21 08:59 Last Admin: 12/05/20 08:16 Dose: 250 mg Documented by: Bupropion HCl (Bupropion Sr 100 Mg Tabcr) 200 mg PO BID [facility] Stop: 01/01/21 08:59 Last Admin: 12/05/20 08:17 Dose: 200 mg Documented by: Calcium Carbonate (Calcium Carbonate 1250mg Tab) 1,250 mg PO DAILY [facility]; Protocol Stop: 01/01/21 08:59 Last Admin: 12/05/20 08:16 Dose: 1,250 mg Documented by: Dextrose (Dextrose 50% 50 Ml Syringe) 25 - 50 ml IV UD PRN; Protocol PRN Reason: Hypoglycemia Protocol Stop: 01/01/21 07:59 Diclofenac Sodium (Diclofenac Sod 1% Gel 100 Gm Tube) 4 gm EXT BID [facility] Stop: 01/02/21 11:44 Last Admin: 12/05/20 08:17 Dose: 4 gm Documented by: Ferrous Sulfate (Ferrous Sulfate 325 Mg Tab) 325 mg PO MoWeFr@0900 [facility] Stop: 01/01/21 08:59 Last Admin: 12/05/20 08:16 Dose: 325 mg Documented by: Glucagon (Glucagon For Inj 1 Mg Vial) 1 mg IM UD PRN; Protocol PRN Reason: Hypoglycemia Protocol Stop: 01/01/21 07:59 Glucose (Glucose 40% Gel 15 Gm Tube) 15 - 30 gm PO UD PRN; Protocol PRN Reason: Hypoglycemia Protocol Stop: 01/01/21 07:59 Glucose (Glucose 10 Tabs/Tube) 4 - 8 tabs PO UD PRN; Protocol PRN Reason: Hypoglycemia Protocol Stop: 01/01/21 07:59 Hydromorphone HCl (Hydromorphone Inj 0.5 Mg/0.5 Ml Syr) 0.5 mg IV Q3H PRN PRN Reason: Pain Stop: 12/16/20 02:11 Last Admin: 12/04/20 20:47 Dose: 0.5 mg Documented by: Insulin Aspart (Insulin Aspart 100 Units/Ml 3 Ml Pen) 0 units SC ACHS [facility] Stop: 01/01/21 07:29 Last Admin: 12/05/20 08:46 Dose: 2 units Documented by: Levothyroxine Sodium (Levothyroxine Sodium 100 Mcg Tablet) 100 mcg PO DAILYBB [facility] Stop: 01/01/21 06:29 Last Admin: 12/05/20 05:27 Dose: 100 mcg Documented by: Lisinopril (Lisinopril 5 Mg Tab) 5 mg PO QPM [facility] Stop: 01/01/21 20:59 Last Admin: 12/04/20 20:45 Dose: 5 mg Documented by: Lorazepam (Lorazepam 0.5 Mg Tab) 0.5 mg PO TID PRN PRN Reason: Anxiety Stop: 01/01/21 01:52 Last Admin: 12/02/20 02:04 Dose: 0.5 mg Documented by: Miscellaneous (Carbohydrates For Hypoglycemia ) 15 - 30 gm PO UD PRN PRN Reason: Hypoglycemia Treatment Stop: 01/01/21 07:59 Ondansetron HCl (Ondansetron Inj 2 Mg/Ml 2 Ml Vial) 4 mg IV Q6H PRN PRN Reason: Nausea And Vomiting Stop: 01/01/21 21:38 Last Admin: 12/05/20 03:40 Dose: 4 mg Documented by: Pantoprazole Sodium (Pantoprazole 40 Mg Tab) 40 mg PO QAM [facility] Stop: 01/03/21 12:29 Last Admin: 12/05/20 08:15 Dose: 40 mg Documented by: Trazodone HCl (Trazodone Hcl 50 Mg Tab) 50 mg PO HS [facility] Stop: 01/01/21 20:59 Last Admin: 12/04/20 20:43 Dose: 50 mg Documented by: Vitamin D (Cholecalciferol 1,000 Units 25 Mcg Tab) 3,000 units PO DAILY [facility] Stop: 01/01/21 08:59 Last Admin: 12/05/20 08:17 Dose: 3,000 units Documented by: Warfarin Sodium (Warfarin Sod 4 Mg Tab) 4 mg PO DAILY@1600 [facility] Stop: 01/01/21 15:59 Last Admin: 12/04/20 15:25 Dose: 4 mg Documented by:
[2020-12-05] MEDS: HYDROmorphone INJ 0.5 MG/0.5 ML SYR IV PRN ×2 (13:53→23:40)
[2020-12-05] MEDS: WARFARIN SOD 4 MG TAB PO SCH (15:50)
[2020-12-05] MEDS: lisinopril 5 MG TAB PO SCH (22:06)
[2020-12-05] MEDS: traZODone HCL 50 MG TAB PO SCH (22:07)
[2020-12-06] MEDS: LEVOTHYROXINE SODIUM 100 MCG TABLET PO SCH (05:53)
[2020-12-06] MEDS: buPROPion SR 100 MG TABCR PO SCH ×2 (08:46→21:16)
[2020-12-06] MEDS: DICLOFENAC SOD 1% GEL 100 GM TUBE EXT SCH ×2 (08:47→21:19)
[2020-12-06] MEDS: INSULIN ASPART 100 UNITS/ML 3 ML PEN SC SCH ×4 (08:47→21:16)
[2020-12-06] MEDS: CHOLECALCIFEROL 1,000 UNITS 25 MCG TAB PO SCH (08:47)
[2020-12-06] MEDS: CALCIUM CARBONATE 1250MG TAB PO SCH (08:47)
[2020-12-06] MEDS: PANTOprazole 40 MG TAB PO SCH (08:47)
[2020-12-06] MEDS: POLYETHYLENE (MIRALAX) 17 GM PACK PO SCH (09:38)
[2020-12-06] MEDS: HYDROmorphone INJ 0.5 MG/0.5 ML SYR IV PRN (13:39)
--- NOTE | 2020-12-06 13:45 | Hospitalist Progress Note ---
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 Complains some some weakness involving right-sided extremities and pain in the right hip Suffered a fall yesterday and could not manage to get up Initial investigations came out to be unremarkable including MRI of the cervical and thoracic spine Appreciate neurology input and recommendation CPK level is minimally elevated and the repeat test of CPK improved We will continue PT and OT evaluation Will need rehab placement Will have outpatient neuro appointment and EMG Clinically a little better and is participating with physical therapy and trying to take less of narcotics pain medication Awaiting approval to rehab History of gastric bypass surgery Vitamin B12 and folate level Electrolyte imbalance will be corrected by appropriate supplementation Complain of some dyspeptic symptom with nausea We will add Protonix Nausea and epigastric discomfort are better Will try Maalox and/or Mylanta (2) Acute pain of right hip: Likely secondary to osteoarthritis Right upper thigh pain and tenderness with movement of the right lower extremity Moderate tenderness noted over right upper lateral thigh without any significant bruising Has been getting pain medications orally and IV Will apply local diclofenac Pain seems to be better (3) Small bowel intussusception: CT scan of the abdomen and pelvis documented to have possible intussusception Appreciate surgical input and recommendation No evidence of intussusception identified (4) Diabetes mellitus, type 2: Continue with current management SSI (5) Deep vein thrombosis: History of deep vein thrombosis and pulmonary embolism History of Carlie filter placement Has been on Coumadin-on hold now due to possible bruising involving the right thigh with decreasing hemoglobin Coumadin restarted INR is 1.5 on 12/04/2020 We will check INR tomorrow (6) Depression: No acute anxiety and/or depression (7) Hypothyroidism: Continue supplement DVT prophylaxis SCDs for now Increase ambulation and physical therapy Coumadin restarted Admission and Anticipated Discharge Date Admission Date: December 04, 2020 Subjective 12/02/2020 The patient was seen and examined in medical floor She was admitted with right-sided weakness and history of fall and could not manage to get up She still has the complaints of right upper and lower extremity weakness and denies any other symptoms She has been falling frequently at home 12/03/2020 The patient was seen and examined in medical floor She has been complaining of pain in the right upper anterior and lateral thigh The area does not seems to be bruised but very tender to palpate Still complains to have weakness involving the right lower extremity Denies any other symptoms 12/04/2020 The patient was seen and examined in medical for She has had some nausea but no vomiting this morning Her right thigh pain is better Denies any other significant symptoms 12/05/2020 The patient was seen and examined in medical floor Her pain in the right upper thigh is better but he still complains of right hip pain with activities Still has weakness involving the right lower extremity Her epigastric discomfort is better 12/06/2020 The patient was seen and examined in medical floor She remained stable with decrease in right thigh pain She will need to go to rehab following discharge Still complains to have some dyspepsia and will try to give some Maalox and/or Mylanta Review of Systems Review of Systems: All systems reviewed and are unremarkable except as noted below Musculoskeletal: + muscle weakness (Right thigh) Minimal weakness involving the right side extremities. No acute arthritis in any joint Physical Exam Physical Exam: Sitting on a chair without any apparent distress Constitutional: well developed, well nourished and + obese; not ill appearing Eyes: PERRL, conjunctivae normal, anicteric sclerae ENMT: external ear and nose normal, oropharynx normal Neck: trachea midline, no thyromegaly Respiratory: no respiratory distress Cardiovascular: Rate/Rhythm: regular rate and regular rhythm Heart Sounds: no murmur Extremities: + edema Gastrointestinal (Abdomen): Inspection/Auscultation: normal bowel sounds; abdomen not distended Percussion/Palpation: abdomen soft; abdomen nontender Musculoskeletal: Extremities: + limited ROM of extremities (Limited movement of right lower extremity due to pain) Swelling and tenderness involving the lateral upper thigh on the right side are improved Neurologic: Alert, awake and oriented x3. Still has right lower extremity weakness Psychiatric: A+Ox3, euthymic affect Lymphatic: no cervical or axillary lymphadenopathy Results & Data Results & Data ([facility]) Vital Signs (Past 12 Hours) Vital Signs Temp Pulse Resp BP Pulse Ox 12/06/20 07:58 36.7 C 67 16 137/75 92 Medications Administered Current Inpatient Medications Albuterol (Albuterol Hfa 8 Gm Inhaler) 2 puffs INH QIDR PRN PRN Reason: Shortness Of Breath Or Wheezing Stop: 01/01/21 01:56 Ascorbic Acid (Ascorbic Acid 500 Mg Tab) 250 mg PO MoWeFr@0900 [facility] Stop: 01/01/21 08:59 Last Admin: 12/05/20 08:16 Dose: 250 mg Documented by: Bupropion HCl (Bupropion Sr 100 Mg Tabcr) 200 mg PO BID [facility] Stop: 01/01/21 08:59 Last Admin: 12/06/20 08:46 Dose: 200 mg Documented by: Calcium Carbonate (Calcium Carbonate 1250mg Tab) 1,250 mg PO DAILY [facility]; Protocol Stop: 01/01/21 08:59 Last Admin: 12/06/20 08:47 Dose: 1,250 mg Documented by: Dextrose (Dextrose 50% 50 Ml Syringe) 25 - 50 ml IV UD PRN; Protocol PRN Reason: Hypoglycemia Protocol Stop: 01/01/21 07:59 Diclofenac Sodium (Diclofenac Sod 1% Gel 100 Gm Tube) 4 gm EXT BID [facility] Stop: 01/02/21 11:44 Last Admin: 12/06/20 08:47 Dose: Not Given Documented by: Ferrous Sulfate (Ferrous Sulfate 325 Mg Tab) 325 mg PO MoWeFr@0900 [facility] Stop: 01/01/21 08:59 Last Admin: 12/05/20 08:16 Dose: 325 mg Documented by: Glucagon (Glucagon For Inj 1 Mg Vial) 1 mg IM UD PRN; Protocol PRN Reason: Hypoglycemia Protocol Stop: 01/01/21 07:59 Glucose (Glucose 40% Gel 15 Gm Tube) 15 - 30 gm PO UD PRN; Protocol PRN Reason: Hypoglycemia Protocol Stop: 01/01/21 07:59 Glucose (Glucose 10 Tabs/Tube) 4 - 8 tabs PO UD PRN; Protocol PRN Reason: Hypoglycemia Protocol Stop: 01/01/21 07:59 Hydromorphone HCl (Hydromorphone Inj 0.5 Mg/0.5 Ml Syr) 0.5 mg IV Q3H PRN PRN Reason: Pain Stop: 12/16/20 02:11 Last Admin: 12/06/20 13:39 Dose: 0.5 mg Documented by: Insulin Aspart (Insulin Aspart 100 Units/Ml 3 Ml Pen) 0 units SC ACHS [facility] Stop: 01/01/21 07:29 Last Admin: 12/06/20 13:37 Dose: 2 units Documented by: Levothyroxine Sodium (Levothyroxine Sodium 100 Mcg Tablet) 100 mcg PO DAILYBB [facility] Stop: 01/01/21 06:29 Last Admin: 12/06/20 05:53 Dose: 100 mcg Documented by: Lisinopril (Lisinopril 5 Mg Tab) 5 mg PO QPM [facility] Stop: 01/01/21 20:59 Last Admin: 12/05/20 22:06 Dose: 5 mg Documented by: Lorazepam (Lorazepam 0.5 Mg Tab) 0.5 mg PO TID PRN PRN Reason: Anxiety Stop: 01/01/21 01:52 Last Admin: 12/02/20 02:04 Dose: 0.5 mg Documented by: Miscellaneous (Carbohydrates For Hypoglycemia ) 15 - 30 gm PO UD PRN PRN Reason: Hypoglycemia Treatment Stop: 01/01/21 07:59 Ondansetron HCl (Ondansetron Inj 2 Mg/Ml 2 Ml Vial) 4 mg IV Q6H PRN PRN Reason: Nausea And Vomiting Stop: 01/01/21 21:38 Last Admin: 12/05/20 20:12 Dose: 4 mg Documented by: Pantoprazole Sodium (Pantoprazole 40 Mg Tab) 40 mg PO QAM [facility] Stop: 01/03/21 12:29 Last Admin: 12/06/20 08:47 Dose: 40 mg Documented by: Polyethylene Glycol (Polyethylene (Miralax) 17 Gm Pack) 17 gm PO DAILY [facility] Stop: 01/05/21 09:14 Last Admin: 12/06/20 09:38 Dose: 17 gm Documented by: Trazodone HCl (Trazodone Hcl 50 Mg Tab) 50 mg PO HS [facility] Stop: 01/01/21 20:59 Last Admin: 12/05/20 22:07 Dose: 50 mg Documented by: Vitamin D (Cholecalciferol 1,000 Units 25 Mcg Tab) 3,000 units PO DAILY [facility] Stop: 01/01/21 08:59 Last Admin: 12/06/20 08:47 Dose: 3,000 units Documented by: Warfarin Sodium (Warfarin Sod 4 Mg Tab) 4 mg PO DAILY@1600 [facility] Stop: 01/01/21 15:59 Last Admin: 12/05/20 15:50 Dose: 4 mg Documented by:
[2020-12-06] MEDS ORDERED: ALUMINUM/MAGNESIUM SUSP 30 ML UDC PO PRN (13:47)
[2020-12-06] MEDS: WARFARIN SOD 4 MG TAB PO SCH (16:44)
[2020-12-06] MEDS: oxyCODONE HCL SOLN 5 MG/5 ML UDC PO PRN (20:04)
[2020-12-06] MEDS: lisinopril 5 MG TAB PO SCH (21:16)
[2020-12-06] MEDS: traZODone HCL 50 MG TAB PO SCH (22:34)
[2020-12-07] MEDS: LEVOTHYROXINE SODIUM 100 MCG TABLET PO SCH (05:39)
[2020-12-07] MEDS: oxyCODONE HCL SOLN 5 MG/5 ML UDC PO PRN ×3 (05:39→17:58)
[2020-12-07 07:47] LABS: Basophils # (auto) 0.02 K/uL (0-0.2); Basophils % (auto) 0.3 %; Eosinophils # (auto) 0.16 K/uL (0-0.5); Eosinophils % (auto) 2.8 %; Hematocrit (blood only) 30.8 % (37-47); Hemoglobin 9.9 g/dL (12.0-16.0); Immature Granulocytes # (auto) 0.02 K/uL (0.00-0.02); Immature Granulocytes % (auto) 0.3 %; Lymphocytes % (auto) 34.5 %; Mean Corpuscular Hemoglobin 30.1 pg (25-34); Mean Corpuscular Hgb Conc 32.1 g/dL (32-36); Mean Corpuscular Volume 93.6 fL (80-100); Mean Platelet Volume 9.1 fL (7.4-10.4); Monocytes % (auto) 6.9 %; Neutrophils # (auto) 3.19 K/uL (1.4-6.5); Neutrophils % (auto) 55.2 %; Platelet Count 228 K/uL (130-400); RDW Coefficient of Variation 13.8 % (11.5-14.5); Red Blood Count 3.29 M/uL (4.2-5.4); White Blood Count 5.79 K/uL (4.8-10.8)
[2020-12-07 07:59] LABS: INR 1.7 (0.9-1.1); Prothrombin Time 16.2 Seconds (9.0-12.0)
[2020-12-07 08:21] LABS: BUN Creatinine Ratio 19.7 (10-20); Calcium 8.9 mg/dl (8.5-10.1); Est GFR (African American) 72.9 ml/min; Est GFR (Non-African American) 62.9 ml/min; Potassium 4.8 mmol/L (3.5-5.1)
[2020-12-07] MEDS: ASCORBIC ACID 500 MG TAB PO SCH (09:08)
[2020-12-07] MEDS: INSULIN ASPART 100 UNITS/ML 3 ML PEN SC SCH ×3 (09:08→17:59)
[2020-12-07] MEDS: PANTOprazole 40 MG TAB PO SCH (09:08)
[2020-12-07] MEDS: FERROUS SULFATE 325 MG TAB PO SCH (09:09)
[2020-12-07] MEDS: POLYETHYLENE (MIRALAX) 17 GM PACK PO SCH (09:09)
[2020-12-07] MEDS: DICLOFENAC SOD 1% GEL 100 GM TUBE EXT SCH (09:09)
[2020-12-07] MEDS: buPROPion SR 100 MG TABCR PO SCH (09:10)
[2020-12-07] MEDS: CHOLECALCIFEROL 1,000 UNITS 25 MCG TAB PO SCH (09:10)
[2020-12-07] MEDS: CALCIUM CARBONATE 1250MG TAB PO SCH (09:10)
--- NOTE | 2020-12-07 15:39 | Hospitalist Progress Note ---
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 Mild to moderate multilevel spondylytic changes as described above. Mild spinal canal narrowing at the C3-4, C4-5, C5-C6 levels. Multilevel foraminal narrowing. -Thoracici MRI:No evidence of pathologic marrow replacement. Tiny central disc protrusion at the T5-6 level, finding of doubtful clinical significance. No thoracic cord lesions identified. Disc bulge/protrusion at the L2-3 level with secondary spinal canal narrowing -Lumbar MRI :pending Appreciate neurology input Needs outpatient EMG Continue PT/OT Needs Rehab placement H/O Gastric bypass surgery Normal Vitamin B12 and folate levels Protonix added for dyspepsia (2) Acute pain of right hip: Recent Pelvic CT:No acute fractures or dislocations identified Likely secondary to osteoarthritis/fall Pain control PT/OT (3) Small bowel intussusception: CT scan of the abdomen and pelvis documented to have intussusception--Likely Chronic--similar finding on CT scan in 2010 Appreciate surgical input (4) Diabetes mellitus, type 2: Monitor BGs Continue SSI (5) Deep vein thrombosis: H/O DVT and PE H/O Carlie filter placement Continue Coumadin Monitor INR:1.7 (6) Depression: Mood is stable (7) Hypothyroidism: Continue levothyroxine DVT Px: Coumadin CODE STATUS Full code Admission and Anticipated Discharge Date Admission Date: December 04, 2020 Subjective Patient is seen and examined at bedside Continues to complain of right thigh pain, right hip pain Denies chest pain, shortness of breath, dizziness, nausea, abdominal pain Offers no other complaints Review of Systems Review of Systems: All systems reviewed & are unremarkable except as noted in HPI & below Physical Exam Physical Exam: Physical Exam: Vitals signs as noted above General Appearance:Moderately built and nourished, no apparent distress Head: normocephalic, Atraumatic Eyes: normal inspection, EOMI Neck: supple, Trachea midline Respiratory/Chest: Normal breath sounds, CTA, No accessory muscle use Cardiovascular: S1, S2, No murmur Abdomen/GI:Soft, Non tender, Bowel sounds present Extremities/Musculoskeletal:normal inspection, no edema. Right thigh tenderness Neurologic/Psych:AAOX3, grossly no focal neurological deficits. RLE 4/5 Skin: normal color, warm Results & Data Results & Data ([facility]) Vital Signs (Past 12 Hours) Vital Signs Temp Pulse Resp BP Pulse Ox 12/07/20 14:59 36.6 C 64 16 122/77 94 12/07/20 07:46 36.7 C 62 18 142/83 H 95 Laboratory Results Short CBC 12/07/20 Range/Units 07:24 WBC 5.79 (4.8-10.8) K/uL Hgb 9.9 L (12.0-16.0) g/dL Hct 30.8 L (37-47) % Plt Count 228 (130-400) K/uL BMP 12/07/20 07:24 Sodium 142 Potassium 4.8 Chloride 109 H Carbon Dioxide 28 BUN 19 H Creatinine 0.96 Glucose 134 H Calcium 8.9
[2020-12-07] MEDS ORDERED: WARFARIN SOD 5 MG TAB PO SCH (16:00)
--- NOTE | 2020-12-07 16:51 | Magnetic Resonance Report ---
MRI OF THE LUMBAR SPINE WITHOUT CONTRAST CLINICAL HISTORY: Myelopathy, right lower extremity pain. Recent fall. COMPARISON STUDY: No previous studies for comparison. TECHNIQUE: Utilizing a 1.5 Sonia magnet and dedicated coil, multiplanar, multiecho imaging of the [facility] spine was performed without IV contrast. FINDINGS: For purposes of numbering on this exam, the L5-S1 disc space is assigned to axial image 28 of 30. Ali gnment of the lumbar spine is anatomic. Vertebral body heights are maintained with exception of sligh t loss of height of the superior endplate of L3 which is chronic. There is no marrow edema or marrow replacement. The conus terminates at the mid L2 level. There is no intracanalicular mass or fluid col lection. Paravertebral soft tissues are unremarkable. L1-2: The central canal and neural foramen are patent. L2-3: There is mild disc space narrowing with disc bulge, ligamentous hypertrophy and facet arthrosis . There is mild narrowing of the central canal, lateral recesses and the neural foramen. L3-4: Note is made of ligamentous hypertrophy and facet arthrosis. There is mild narrowing of the roman tral canal, lateral recesses and neural foramen. L4-5: There is disc bulge with ligamentous hypertrophy and facet arthrosis. There is mild narrowing o f the central canal, lateral recesses and the neural foramen. L5-S1: Central canal and neural foramen are patent. IMPRESSION: 1. No acute process within the lumbar spine by MRI. 2. Multilevel degenerative disc disease and facet arthrosis which results in mild multilevel central canal, lateral recess and neural foraminal stenosis. 3. Mild loss of height of the superior endplate of L3 which is chronic. ACT 112: Negative or not required by law. Electronically signed by: Breezy Titus M.D. 12/07/2020 4:49 PM
--- NOTE | 2020-12-07 17:19 | Discharge Summary ---
Date of Service December 07, 2020 Admission HPI Per Admitting Provider CHIEF COMPLAINT: Frequent falls. HISTORY OF PRESENT ILLNESS: This is a 65-year-old female with past medical history significant for type 2 diabetes, hypothyroidism, hypertension, irritable bowel syndrome, Hitchcock's esophagus, intestinal postoperative non-absorption, senile osteoporosis with iron deficiency anemia, B12 deficiency, status post gastric bypass surgery, history of pulmonary embolism, on Coumadin, who presents with frequent falls. The patient states in August, she fell on the ice, she thought she slipped and fell in the ice, but since then she fell 4 times, a couple of days ago she had a big fall. Today, she was sitting on the toilet and she could not get up and she fell and laid on the floor for a couple of hours until her fiance came and helped her. That is the reason she came to the ER today. In the ER, imaging studies showed possible intussusception at the previous gastric bypass surgery and ER notified surgery, but because the patient is currently asymptomatic, no further recommendations were made at this time. The patient denies any headache, no blurred vision, no earache, no runny nose, no sore throat, no cough, no fever, no chills, no chest pain, no shortness of breath, no nausea, no vomiting, no abdominal pain. Normal bowel and bladder movements. Currently resting comfortably and hemodynamically stable. She says her legs are just feeling weak and she is falling down. Denies any other complaints. Admission Exam Per Admitting Provider PHYSICAL EXAMINATION: GENERAL: The patient is obese, not in acute distress. VITAL SIGNS: Temperature 36.6, pulse 74, respiratory rate 18, blood pressure 194/86, oxygen 95% on room air. HEENT: Pupils equal, round, and reactive to light. Oral mucosa dry. NECK: No JVD. No neck masses. CARDIOVASCULAR: S1, S2 heard, regular rate and rhythm, no murmur, no gallop. RESPIRATORY SYSTEM: Normal AP diameter. No accessory muscle use. No wheezing, no crackles. ABDOMEN: Soft, bowel sounds present, nontender. No distention. CENTRAL NERVOUS SYSTEM: Cranial nerves II-XII are grossly intact. Not able to lift lower extremity because of pain and whenever she lifts she has pain in the hip region. Sensation is intact. EXTREMITIES: No edema, no erythema seen. Principal Diagnosis Frequent falls Right Hip/Leg Pain Degenerative disc disease Discharge Data Allergies Allergy/AdvReac Type Severity Reaction Status Date / Time prochlorperazine Allergy Severe THROAT Verified 12/01/20 17:54 SWELLS Sulfa (Sulfonamide Allergy Intermediate ITCHY RASH Verified 12/01/20 17:54 Antibiotics) morphine AdvReac Intermediate HALLUCINATION, Verified 12/01/20 17:54 FEEL "REALLY WEIRD". Consultations 12/01/20 23:05 ED Decision to Admit Stat 12/02/20 08:00 Consult General Surgery Routine Consult Neurology Routine Procedures Performed -Cervical MRI:No cord lesions identified. Mild to moderate multilevel spondylytic changes as described above. Mild spinal canal narrowing at the C3-4, C4-5, C5-C6 levels. Multilevel foraminal narrowing. -Thoracici MRI:No evidence of pathologic marrow replacement. Tiny central disc protrusion at the T5-6 level, finding of doubtful clinical significance. No thoracic cord lesions identified. Disc bulge/protrusion at the L2-3 level with secondary spinal canal narrowing -Lumbar MRI: No acute process within the lumbar spine by MRI. Multilevel degenerative disc disease and facet arthrosis which results in mild multilevel central canal, lateral recess and neural foraminal stenosis. Mild loss of height of the superior endplate of L3 which is chronic. 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 Mild to moderate multilevel spondylytic changes as described above. Mild spinal canal narrowing at the C3-4, C4-5, C5-C6 levels. Multilevel foraminal narrowing. -Thoracici MRI:No evidence of pathologic marrow replacement. Tiny central disc protrusion at the T5-6 level, finding of doubtful clinical significance. No th oracic cord lesions identified. Disc bulge/protrusion at the L2-3 level with secondary spinal canal narrowing -Lumbar MRI :pending Appreciate neurology input Needs outpatient EMG Continue PT/OT Needs Rehab placement H/O Gastric bypass surgery Normal Vitamin B12 and folate levels Protonix added for dyspepsia (2) Acute pain of right hip: Recent Pelvic CT:No acute fractures or dislocations identified Likely secondary to osteoarthritis/fall Pain control PT/OT (3) Small bowel intussusception: CT scan of the abdomen and pelvis documented to have intussusception--Likely Chronic--similar finding on CT scan in 2011 Appreciate surgical input (4) Diabetes mellitus, type 2: Monitor BGs Continue SSI (5) Deep vein thrombosis: H/O DVT and PE H/O Carlie filter placement Continue Coumadin Monitor INR:1.7 (6) Depression: Mood is stable (7) Hypothyroidism: Continue levothyroxine DVT Px: Coumadin CODE STATUS Full code Total Time Total Time Spent Total Time Spent (In Minutes): 44 minutes Total Time Includes: Examination of the Patient, Discharge Planning, Medication Reconciliation, Communication With Other Providers and Other Discharge Plan Discharge Items Patient Disposition: Transfer Inpatient Rehab Fac Reason For Visit: FREQUENT FALLS Discharge Diagnosis: Frequent falls Right Hip/Leg Pain Degenerative disc disease Condition on Discharge: Good Activity: Per Instructions section Exercise/Sports: Gradually increase as tolerated Non-emergency contact: Primary Care Provider and Neurologist Call non-emergency contact if: you have any medication questions, your symptoms worsen, your pain is concerning for you and you have a fever Follow-up/Referrals: Gigi Hahn MD [Primary Care Provider] - Diet: Carb Consistent or DM2 and Heart Healthy Addtl Attending Provider Instructions: Follow up with your PCP in 1 week upon discharge from rehab facility Follow-up with your neurologist Dr. Farr in 2-3 weeks Get EMG as outpatient and follow up with your Neurologist for further recommendations Your PT/INR is 1.7 today (12/07/20). Take 5 mg coumadin today Get PT/INR checked at Rehab facility and follow-up with your physician at rehab facility for further adjustment of your Coumadin dosing. Seek immediate medical attention if your symptoms reoccur or worsen Please take all medications as instructed on discharge list below. Please call if you have any questions or problems. You can reach a [facility] hospitalist on duty at [facility] 24 hours a day by calling [phone] Pending Studies at Discharge: No Stand-Alone Forms: My [facility] Skilled Items Patient informed of condition?: Yes DNR: No Discharge Level of Care: Acute rehab Communicable Disease: No Discharge Prognosis: Stable Lines: None Urinary Catheter: No Medications and DC Order Prescriptions: New diclofenac sodium [Voltaren] 1 % Gel 4 g EXT BID Qty: 0 RF: 0 oxycodone 5 mg tablet 5 mg PO Q4H PRN (Reason: pain) Qty: 1 RF: 0 pantoprazole 40 mg Tablet,Delayed Release (Dr/Ec) 40 mg PO QAM Qty: 0 RF: 0 Continued metformin 500 mg Tablet 500 mg PO BID RF: 0 levothyroxine 100 mcg Tablet 100 mcg PO QAM RF: 0 lisinopril 5 mg Tablet 5 mg PO QPM RF: 0 bupropion HCl 200 mg Tablet Sustained-Release 12 Hr 200 mg PO BID RF: 0 Vitron-C 65 mg iron- 125 mg Tablet,Delayed Release (Dr/Ec) 1 tab PO 3XWK RF: 0 warfarin 4 mg tablet 4 mg PO QPM RF: 0 calcium carbonate [Calcium 600] 600 mg calcium (1,500 mg) Tablet 600 mg PO DAILY RF: 0 cholecalciferol (vitamin D3) [Vitamin D3] 25 mcg (1,000 unit) Capsule 75 mcg PO DAILY RF: 0 zoledronic [id number] [Reclast] 5 mg/100 mL Piggyback 0 ea IV YEARLY RF: 0 Trulicity 0.75 mg/0.5 mL pen injector 0.75 mg SUBCUT WK RF: 0 trazodone 50 mg tablet 50 mg PO HS RF: 0 lorazepam 0.5 mg tablet 0.5 mg PO TID PRN (Reason: Anxiety) RF: 0 albuterol 90 mcg/actuation Aerosol 2 mcg INHALATION QID PRN (Reason: Shortness Of Breath Or Wheezing) RF: 0 Discharge Orders: Discharge Order (Routine); Ordered 12/07/20 Ordered By: Fidel Rivero Admission Data Admit Date/Time: 12/04/20 08:52 Attending Provider: Fidel Rivero Admit Provider: Frederick Santoyo Primary Care Provider: Gigi Hahn Other Providers: Jaiden Fisher ; Radha Rodriguez ; Charles Farr ; Radha Beasley ; Lencho Keita ; Frederick Santoyo ; [facility] ; [facility] ; [facility]
== END 2020-12-07 19:05 | DRG 92 ==
LOC: 3W 17:19 → ED 17:19 → 3W 12-02 01:41 → SUATTDRO 12-04 08:52 → 3N 12-05 19:26